=== PATIENT | female | born 1955 | race Caucasian/White ===

== ENCOUNTER 2018-02-16 17:59 | Emergency (ER) | payer MEDICARE ==
[2018-02-16] MEDS ORDERED: LISINOPRIL 10 MG TABLET PO ONE (20:11)
[2018-02-16] MEDS ORDERED: GABAPENTIN 300 MG CAPSULE PO ONE (20:12)
[2018-02-16] MEDS ORDERED: ACYCLOVIR 800 MG TABLET PO ONE (20:12)
[2018-02-16] MEDS ORDERED: PREDNISONE 20 MG TABLET PO ONE (20:12)
--- NOTE | 2018-02-16 20:18 | ER Document Report ---
ED General - General Chief Complaint: Chest Pain Stated Complaint: CHEST PAIN Time Seen by Provider: 02/16/18 19:07 Notes: Patient is a 62-year-old female with a past medical history of hypertension, hyperlipidemia, diabetes, who presents with 5 weeks of burning, stabbing, searing pain to her left upper back and chest wall. She reports that the symptoms are generally constant but have intermittent periods of worsening. She states that nothing seems to improve or worsen that pain. She has noted rash associated with this pain over the affected area he is concerned that she may have shingles. She does not have access to a primary care physician and does not take any of her medications due to lack of ability to purchase them. She denies any known cardiac history, no prior history of heart attacks. She denies that her chest pain is exertional, pressure-like in sensation, or that there is any associated radiation of the pain, shortness of breath nausea, vomiting or diaphoresis. Nothing is new or different about her symptoms today relative to the past several weeks she states that she came to the emergency department primarily because her pain was not getting better and she felt she needed to be evaluated for the possibility of shingles. TRAVEL OUTSIDE OF THE [place] IN LAST 30 DAYS: No - Related Data Allergies/Adverse Reactions: hydrochlorothiazide [Hydrochlorothiazide] Allergy (Verified 06/26/13 11:37) Anaphylaxis morphine [Morphine] Allergy (Verified 02/22/15 19:48) Penicillins Allergy (Verified 06/26/13 11:37) Anaphylaxis Shellfish * [Shellfish] Allergy (Verified 06/26/13 11:37) Sulfa (Sulfonamide Antibiotics) Allergy (Verified 06/26/13 11:37) Anaphylaxis Sea Food Allergy (Uncoded 06/26/13 11:37) Anaphylaxis Past Medical History - General Information source: Patient - Social History Smoking Status: Former Smoker Frequency of alcohol use: None Drug Abuse: Marijuana Lives with: Spouse/Significant other Family History: Reviewed & Not Pertinent Patient has suicidal ideation: No Patient has homicidal ideation: No - Past Medical History Cardiac Medical History: Reports: Hx Coronary Artery Disease - High cholesterol , tricor, Hx Hypertension Denies: Hx Heart Attack Pulmonary Medical History: Reports: Hx Asthma, Hx Bronchitis, Hx COPD, Hx Pneumonia Neurological Medical History: Reports: Hx Seizures. Denies: Hx Cerebrovascular Accident Endocrine Medical History: Reports: Hx Diabetes Mellitus Type 2 Renal/ Medical History: Denies: Hx Peritoneal Dialysis GI Medical History: Reports: Hx Gastroesophageal Reflux Disease Musculoskeltal Medical History: Reports Hx Arthritis Psychiatric Medical History: Reports: Hx Depression Past Surgical History: Reports: Hx Appendectomy, Hx Hysterectomy, Hx Orthopedic Surgery, Hx Tonsillectomy. Denies: Hx Pacemaker - Immunizations Hx Diphtheria, Pertussis, Tetanus Vaccination: Yes Review of Systems - Review of Systems Notes: Constitutional: Negative for fever. HENT: Negative for sore throat. Eyes: Negative for visual changes. Cardiovascular: Positive for chest pain. Respiratory: Negative for shortness of breath. Gastrointestinal: Negative for abdominal pain, vomiting or diarrhea. Genitourinary: Negative for dysuria. Musculoskeletal: Negative for back pain. Skin: Positive or rash. Neurological: Negative for headaches, weakness or numbness. 10 point ROS negative except as marked above and in HPI. Physical Exam - Vital signs Vitals: Temp Pulse Resp BP Pulse Ox 98.2 F 70 18 190/81 H 97 02/16/18 18:16 02/16/18 18:16 02/16/18 18:16 02/16/18 18:16 02/16/18 18:16 Interpretation: Hypertensive Notes: PHYSICAL EXAMINATION: GENERAL: Well-appearing, well-nourished and in no acute distress. HEAD: Atraumatic, normocephalic. EYES: Pupils equal round and reactive to light, extraocular movements intact, sclera anicteric, conjunctiva are normal. ENT: nares patent, oropharynx clear without exudates. Moist mucous membranes. NECK: Normal range of motion, supple without lymphadenopathy LUNGS: Breath sounds clear to auscultation bilaterally and equal. No wheezes rales or rhonchi. HEART: Regular rate and rhythm without murmurs ABDOMEN: Soft, nontender, normoactive bowel sounds. No guarding, no rebound. No masses appreciated. EXTREMITIES: Normal range of motion, no pitting or edema. No cyanosis. NEUROLOGICAL: No focal neurological deficits. Moves all extremities spontaneously and on command. PSYCH: Normal mood, normal affect. SKIN: Warm, Dry, normal turgor, herpetic lesions over the left upper back most are scabbed over with several new vesicular lesions are present Course - Re-evaluation Re-evalutation: 02/16/18 20:15 Patient presents with a rash along the left upper back consistent with shingles. Fortunately the patient reports that she has had this rash and pain associated with the area for almost 5 weeks and the pain is gotten worse over the time worrisome for possible development of postherpetic neuralgia. However she still continues to develop new lesions and she will therefore be started on acyclovir and prednisone. There is no evidence of associated cellulitis with these lesions. Patient is also reporting some chest pain that has been intermittent over the past 1 month in association with the rash that she states has gone over her chest wall as well. I suspect that this likewise is postherpetic neuralgia as a precaution will obtain a chest x-ray and troponin. EKG without ischemic changes and her clinical history is likewise not consistent with ACS, pulmonary embolus, or acute pneumothorax as the etiology of her presentation. Patient's blood pressure is also noted to be markedly elevated here in the emergency department. She reports that this is a chronic issue and she is not currently taking any of her medications due to inability to afford them. She will be restarted on lisinopril and I have emphasized with her that this is a very cheap medication that she should be able to receive for $4 at [facility]. I have provided her 3 refills for this medication and informed her about the [facility] who can continue to see her at a very low cost. - Vital Signs Vital signs: Temp Pulse Resp BP Pulse Ox 98.2 F 70 15 175/95 H 98 02/16/18 18:16 02/16/18 18:16 02/16/18 19:01 02/16/18 19:01 02/16/18 19:01 - Laboratory Result Diagrams: 02/16/18 18:36 Laboratory results interpreted by me: 02/16/18 18:36 Glucose 285 H - Diagnostic Test Radiology reviewed: Image reviewed, Reports reviewed Radiology results interpreted by me: 02/16/18 21:03 Chest x-ray: No acute infiltrate or pneumothorax - EKG Interpretation by Me Additional EKG results interpreted by me: 02/16/18 20:18 Sinus rhythm. Rate 66. No ST elevations or depressions. QTC is 449. T-wave inversion in V3 and 4 no old for comparison. Discharge - Discharge Clinical Impression: Essential hypertension Chest pain Qualifiers: Chest pain type: unspecified Qualified Code(s): R07.9 - Chest pain, unspecified Shingles Qualifiers: Herpes zoster complications: without complications Qualified Code(s): B02.9 - Zoster without complications Condition: Stable Disposition: HOME, SELF-CARE Additional Instructions: Your rash and pain is consistent with a diagnosis of shingles. This is a reactivation of the chickenpox virus you had as a child. You are being started on medicines to combat the virus as well as steroids. Please take exactly as directed until the medications are completed. Return to the emergency department immediately if you develop severe headache, weakness, numbness, worsening of the rash, fever, persistent vomiting, or any other symptoms that are worrisome to you. You were seen today for blood pressure that was high. This is a long-term risk factor for multiple medical problems including heart attack and stroke. However, the blood pressure in of itself will not cause you to have an acute stroke or heart attack over the course of just several days or weeks. You need to have a gradual reduction of your blood pressure back to normal levels over the next several months in conjunction with your primary care physician. Return if you develop headache, weakness, numbness, chest pain, pass out, or have any other symptoms that are concerning to you. You were seen today for chest pain. The exact cause of your pain is unclear. However, based on your cardiac enzyme testing, chest x-ray, and EKG it does not appear that it is from an immediately life-threatening cause at this time. Although your testing here is normal is critical that you follow-up with your primary care physician for continued evaluation of this chest pain and possible stress testing. I recommended you see your physician within the next 24-48 hours to be evaluated for consideration of a stress test. Please return to emergency department immediately if you have worsening of your chest pain, shortness of breath, vomiting, become unable to exert yourself due to pain or difficulty breathing, you pass out, or have any pain that radiates into your arms, jaw, or back. Please also return if you have any additional symptoms that are concerning to you. Prescriptions: Acyclovir 800 mg PO 5XD #35 tablet Gabapentin 300 mg PO TID #90 capsule Lisinopril 20 mg PO DAILY #30 tablet Prednisone [Deltasone 20 mg Tablet] 3 tab PO DAILY 5 Days tablet
[2018-02-16 20:27] LABS: ANION GAP 9 (5-19); BLOOD UREA NITROGEN 9 mg/dL (7-20); CARBON DIOXIDE 25 mmol/L (22-30); CHLORIDE 106 mmol/L (98-107); GLUCOSE 285 mg/dL (75-110); POTASSIUM 4.2 mmol/L (3.6-5.0)
[2018-02-16] MEDS ORDERED: ACYCLOVIR 800 MG TABLET ONE (20:52)
--- NOTE | 2018-02-16 20:54 | RADIOLOGY REPORT (SQ) ---
EXAM DESCRIPTION: CHEST SINGLE VIEW COMPLETED DATE/TIME: 02/16/2018 8:42 pm REASON FOR STUDY: chest pain COMPARISON: 02/22/2015 EXAM PARAMETERS: NUMBER OF VIEWS: One view. TECHNIQUE: Single frontal radiographic view of the chest acquired. RADIATION DOSE: NA LIMITATIONS: None. FINDINGS: LUNGS AND PLEURA: No opacities, masses or pneumothorax. No pleural effusion. MEDIASTINUM AND HILAR STRUCTURES: No masses. Contour normal. HEART AND VASCULAR STRUCTURES: Heart normal in size. Normal vasculature. BONES: No acute findings. HARDWARE: None in the chest. OTHER: No other significant finding. IMPRESSION: NO ACUTE RADIOGRAPHIC FINDING IN THE CHEST. TECHNICAL DOCUMENTATION: JOB ID: [id number] [employer]- All Rights Reserved Reading location - IP/workstation name: [email or web address]
[2018-02-16 21:33] VITALS: BP 171/82
--- NOTE | 2018-02-16 22:02 | EKG REPORT ---
SEVERITY:- ABNORMAL ECG - SINUS RHYTHM NONSPECIFIC REPOL ABNORMALITY, DIFFUSE LEADS : Confirmed by: Shahbaz Eckert MD 16-Feb-2018 22:02:16
== END 2018-02-16 21:33 | disposition home or self-care (01) ==
LOC: ER 17:59
DX: B02.9 Zoster without complications (principal); I10 Essential (primary) hypertension; T46.4X6A Underdosing of angiotensin-converting-enzyme inhibitors, initial encounter; Z91.120 Patient's intentional underdosing of medication regimen due to financial hardship; Z91.14 Patient's other noncompliance with medication regimen; R07.89 Other chest pain; M54.89 Other dorsalgia; E11.9 Type 2 diabetes mellitus without complications; F12.10 Cannabis abuse, uncomplicated; I25.10 Atherosclerotic heart disease of native coronary artery without angina pectoris; J44.9 Chronic obstructive pulmonary disease, unspecified; Z87.892 Personal history of anaphylaxis; Z88.8 Allergy status to other drugs, medicaments and biological substances; Z88.0 Allergy status to penicillin; Z88.2 Allergy status to sulfonamides; Z91.013 Allergy to seafood; Z87.891 Personal history of nicotine dependence; Z87.01 Personal history of pneumonia (recurrent)
CPT/HCPCS: 93005; 99285; 36415; 80048; 84484; 71045; 93010; A9270 ×4; J3490; J7512

== ENCOUNTER 2018-06-04 22:49 | Emergency (ER) | payer MEDICARE ==
[2018-06-04] MEDS ORDERED: HYDROMORPHONE HCL INJ/PF 2 MG/ML AMPULE IV ONE (23:41)
[2018-06-04] MEDS ORDERED: AMLODIPINE BESYLATE 10 MG TABLET PO ONE (23:42)
[2018-06-04] MEDS ORDERED: LISINOPRIL 10 MG TABLET PO ONE (23:42)
--- NOTE | 2018-06-04 23:45 | ER Document Report ---
ED General - General Chief Complaint: Abdominal Pain Stated Complaint: VOMITING/ABDOMINAL PAIN Time Seen by Provider: 06/04/18 23:31 Notes: Patient is a 62-year-old female presents medical complaints. Patient does have a long history of hypertension. She admits that she has not had her blood pressure medications are seen her doctor for a while now. She says actually 2 days ago she noticed that she is having some numbness and tingling into the right side of her body. No weakness on the right side. She is also noticed that she over the course of the last month she has been nauseous and not wanting to eat a whole lot and she has been having some right upper quadrant abdominal pain. She is also noticed that she has pain in her back that radiates around her flanks. She says she does have history of postherpetic neuralgia thinks it could be related to this. She is currently not on any pain medication. She also has noticed that she has had some pressure when she urinates and that her urine has been dark. She has also had a headache now for several days. She denies any recent fevers. He denies any new medications and again has admitted that she has been off her meds for some time now. TRAVEL OUTSIDE OF THE [place] IN LAST 30 DAYS: No - Related Data Allergies/Adverse Reactions: hydrochlorothiazide [Hydrochlorothiazide] Allergy (Verified 06/05/18 01:21) Anaphylaxis morphine [Morphine] Allergy (Verified 06/05/18 01:21) Penicillins Allergy (Verified 06/05/18 01:21) Anaphylaxis Shellfish * [Shellfish] Allergy (Verified 06/05/18 01:21) Sulfa (Sulfonamide Antibiotics) Allergy (Verified 06/05/18 01:21) Anaphylaxis Sea Food Allergy (Uncoded 06/05/18 01:21) Anaphylaxis Past Medical History - Social History Smoking Status: Current Every Day Smoker Frequency of alcohol use: None Drug Abuse: None Family History: Reviewed & Not Pertinent - Past Medical History Cardiac Medical History: Reports: Hx Coronary Artery Disease - High cholesterol , tricor, Hx Hypertension Denies: Hx Heart Attack Pulmonary Medical History: Reports: Hx Asthma, Hx Bronchitis, Hx COPD, Hx Pneumonia Neurological Medical History: Reports: Hx Seizures. Denies: Hx Cerebrovascular Accident Endocrine Medical History: Reports: Hx Diabetes Mellitus Type 2 Renal/ Medical History: Denies: Hx Peritoneal Dialysis GI Medical History: Reports: Hx Gastroesophageal Reflux Disease Musculoskeletal Medical History: Reports Hx Arthritis Psychiatric Medical History: Reports: Hx Depression Past Surgical History: Reports: Hx Appendectomy, Hx Hysterectomy, Hx Orthopedic Surgery, Hx Tonsillectomy. Denies: Hx Pacemaker - Immunizations Hx Diphtheria, Pertussis, Tetanus Vaccination: Yes Review of Systems - Review of Systems Notes: My Normal Review Basic REVIEW OF SYSTEMS: CONSTITUTIONAL : Denies fever, chills, or sweats. Is felt weak. EENT: Denies eye, ear, throat, or mouth pain or symptoms. Denies nasal or sinus congestion. CARDIOVASCULAR: Some chest pressure. Back: Pain around rib cage bilaterally. RESPIRATORY: Denies cough, cold, or chest congestion. Denies shortness of breath, difficulty breathing, or wheezing. GASTROINTESTINAL: Right upper quadrant abdominal pain. Some nausea GENITOURINARY: Denies difficulty urinating, painful urination, burning, frequency, or blood in urine. MUSCULOSKELETAL: Denies neck or back pain or joint pain or swelling. SKIN: Denies rash or skin lesions. NEUROLOGICAL: Denies altered mental status or loss of consciousness. Has a headache. Denies weakness or paralysis or loss of use of either side. Denies problems with gait or speech. Numbness and tingling on right side. ALL OTHER SYSTEMS REVIEWED AND NEGATIVE. Physical Exam - Vital signs Vitals: Temp Pulse Resp BP Pulse Ox 97.9 F 69 18 208/86 H 98 06/04/18 23:14 06/04/18 23:14 06/04/18 23:14 06/04/18 23:14 06/04/18 23:14 - Notes Notes: General Appearance: Well nourished, alert, cooperative, no acute distress, no obvious discomfort. Vitals: reviewed, See vital signs table. Head: no swelling or tenderness to the head Eyes: PERRL, EOMI, Conjuctiva clear Mouth: No decreasd moisture Throat: No tonsillar inflammation, No airway obstruction, No lymphadenopathy Neck: Supple, no neck tenderness, No thyromegaly Back: Patient does have a small pimple-like lesions over her thoracic paraspinal musculature which she says has been there for some time and was told the past that they were possibly shingles. They are bilateral. There is no surrounding erythema or redness. No swelling. Lungs: No wheezing, No rales, No rhonci, No accessory muscle use, good air exchange bilaterally. Heart: Normal rate, Regular rythm, No murmur, no rub Abdomen: Normal BS, soft, No rigidity, mild right upper quadrant abdominal tenderness to palpation, No guarding, no rebound, no abdominal masses, no organomegaly Extremities: strength 5/5 in all extremities, good pulses in all extremities, no swelling or tenderness in the extremities, no edema. Skin: warm, dry, appropriate color, no rash Neuro: speech clear, oriented x 3, normal affect, responds appropriately to questions. Cranial nerves II through XII are intact. Distal sensation intact. Patient moves all extremities without difficulty. Does not have any focal neurologic deficits on exam. Course - Re-evaluation Re-evalutation: 06/05/18 05:49 After treatment of her hypertension patient's symptoms are much improved. She was complaining of some upper quadrant abdominal pain for a while now that has been affecting her eating and drinking. CT scan of the abdomen does not show any evidence of gallbladder pathology and her labs do not suggest that her gallbladder is infected or inflamed. Her headache is improved and her CT scan is negative. She does have a lot of pain that radiates around her flanks that she says she has had ever since she had shingles. I will place her on gabapentin to see if this helps. Overall she is feeling much improved after treatment of her blood pressure. I will place her back on blood pressure medications and talked her the importance of actually taking her blood pressure medications and follow-up with her doctor so that these can be continued to be scribed. I informed her that I want her to have a low threshold to return to ER if she has worsening abdominal pain, difficulty breathing, recurretnweakness or numbness in extremities, chest pain, or if she feels unwell. Patient agrees with plan will be discharged home. Dictation of this chart was performed using voice recognition software; therefore, there may be some unintended grammatical errors. 06/05/18 05:50 - Vital Signs Vital signs: Temp Pulse Resp BP Pulse Ox 97.5 F 81 16 153/74 H 99 06/05/18 03:04 06/05/18 03:04 06/05/18 03:04 06/05/18 03:04 06/05/18 03:04 - Laboratory Result Diagrams: 06/05/18 00:00 06/05/18 00:00 Laboratory results interpreted by me: 06/05/18 06/05/18 06/05/18 00:00 00:00 00:18 WBC 11.0 H Chloride 113 H Carbon Dioxide 16 L Glucose 170 H Urine Protein 30 H Urine Blood MODERATE H Urine Urobilinogen 2.0 H Ur Leukocyte Esterase MODERATE H Discharge - Discharge Clinical Impression: HTN (hypertension) Qualifiers: Hypertension type: unspecified Qualified Code(s): I10 - Essential (primary) hypertension Headache Qualifiers: Headache type: unspecified Headache chronicity pattern: episodic headache Intractability: not intractable Qualified Code(s): R51 - Headache Abdominal pain Qualifiers: Abdominal location: upper abdomen, unspecified Qualified Code(s): R10.10 - Upper abdominal pain, unspecified Condition: Good Disposition: HOME, SELF-CARE Instructions: Family Physicians / Practices Additional Instructions: Please start seeing your doctor again to continue your high blood pressure medications and for reevaluation. I have included a list of local primary care doctors in case you want to establish yourself with a new primary care physican. I have also included a referral to Dr. Chowdhury, GI physician, for reevaluation of your abdomen and further workup for your abdominal pain. Please take the high blood reassure medications as prescribed.Please return to the ER immediately if you develop worsening pain, intractable vomiting, recurrent chest pain, difficulty breathing or feel unwell. I have prescribed Gabapentin to help with your post shingles pain. This medication may make you a little sleepy. it can be titrated up in dose by your doctor every few weeks until it has appropriate effect. Do not titrate this medication yourself. Do not stop it abruptly. Prescriptions: Amlodipine Besylate 10 mg PO DAILY #30 tab Gabapentin 300 mg PO BID #28 capsule Lisinopril 20 mg PO DAILY #30 tablet Forms: Return to Work Referrals: HERVE CHOWDHURY MD [ACTIVE STAFF] - Follow up in 3-5 days
[2018-06-05 00:18] LABS: ABSOLUTE BASOPHILS # (AUTO) 0.1 10^3/uL (0.0-0.2); ABSOLUTE LYMPHOCYTES (AUTO) 3.2 10^3/uL (0.5-4.7); ABSOLUTE MONOCYTES (AUTO) 0.6 10^3/uL (0.1-1.4); ABSOLUTE NEUT (AUTO) 7.1 10^3/uL (1.7-8.2); HEMATOCRIT 42.4 % (36.0-47.0); HEMOGLOBIN 15.2 g/dL (12.0-15.5); MEAN CORPUSCULAR HEMOGLOBIN 32.4 pg (27.0-33.4); MEAN CORPUSCULAR HGB CONC 35.9 g/dL (32.0-36.0); MEAN CORPUSCULAR VOLUME 90 fl (80-97); MONOCYTES % (AUTO) 5.2 % (3-13); PLATELET COUNT 305 10^3/uL (150-450); RED CELL DISTRIBUTION WIDTH 13.1 % (11.5-14.0); SEGMENTED NEUTROPHILS % (AUTO) 64.8 % (42-78); TOTAL CELLS COUNTED % (AUTO) 100 %
[2018-06-05] MEDS ORDERED: METOCLOPRAMIDE HCL INJ/PF 10 MG/2 ML SDV IV ONE (00:23)
[2018-06-05 00:29] LABS: ALANINE AMINOTRANSFERASE 21 U/L (9-52); ALBUMIN 4.5 g/dL (3.5-5.0); ALKALINE PHOSPHATASE 108 U/L (38-126); ANION GAP 14 (5-19); ASPARTATE AMINO TRANSFERASE 14 U/L (14-36); BILIRUBIN,DIRECT 0.3 mg/dL (0.0-0.4); BILIRUBIN,TOTAL 0.6 mg/dL (0.2-1.3); BLOOD UREA NITROGEN 8 mg/dL (7-20); CALCIUM 9.3 mg/dL (8.4-10.2); CARBON DIOXIDE 16 mmol/L (22-30); CHLORIDE 113 mmol/L (98-107); GLUCOSE 170 mg/dL (75-110); LIPASE 139.8 U/L (23-300); POTASSIUM 3.8 mmol/L (3.6-5.0); SODIUM 142.9 mmol/L (137-145); TOTAL PROTEIN 7.1 g/dL (6.3-8.2)
[2018-06-05 00:42] LABS: APPEARANCE,URINE SLIGHTLY-CLOUDY; BILIRUBIN,URINE NEGATIVE (NEGATIVE); COLOR,URINE YELLOW; GLUCOSE, URINE NEGATIVE (NEGATIVE); KETONES,URINE NEGATIVE (NEGATIVE); LEUKOCYTE ESTERASE,URINE MODERATE (NEGATIVE); NITRITE,URINE NEGATIVE (NEGATIVE); PROTEIN,URINE 30 mg/dL (NEGATIVE); URINE SPECIFIC GRAVITY 1.023
--- NOTE | 2018-06-05 01:04 | RADIOLOGY REPORT (SQ) ---
EXAM DESCRIPTION: CT HEAD WITHOUT IV CONTRAST COMPLETED DATE/TME: 06/05/2018 00:00 CLINICAL HISTORY: 62 years, Female, right sided numbness. HX HTN COMPARISON: 03/31/2013 TECHNIQUE: Axial CT images of the brain were obtained without contrast. Sagittal and coronal reformats were performed. DL 1028 Images stored on PACS. All CT scanners at this facility use dose modulation, iterative reconstruction, and/or weight based dosing when appropriate to reduce radiation dose to as low as reasonably achievable (ALARA). [facility]: Dose Right [facility]: CareDose [facility]: Dose Right [facility]: Teradose 4D [facility]: Smart Meeps LIMITATIONS: None. FINDINGS: There is no acute infarct, hemorrhage, mass, edema, hydrocephalus, or extra-axial fluid collection. The paranasal sinuses and mastoid air cells are clear. There is no acute fracture IMPRESSION: No acute intracranial abnormality TECHNICAL DOCUMENTATION: Quality ID # 436: Final reports with documentation of one or more dose reduction techniques (e.g., Automated exposure control, adjustment of the mA and/or kV according to patient size, use of iterative reconstruction technique) 2010 [employer]- All Rights Reserved
[2018-06-05] MEDS ORDERED: NORMAL SALINE 1000 ML 1,000 ML IV ONE (01:05)
[2018-06-05] MEDS ORDERED: HYDROMORPHONE HCL INJ/PF 2 MG/ML AMPULE IV ONE (01:46)
--- NOTE | 2018-06-05 02:12 | RADIOLOGY REPORT (SQ) ---
EXAM DESCRIPTION: CT ABDOMEN PELVIS WITH IV CONTRAST COMPLETED DATE/TME: 06/05/2018 01:14 CLINICAL HISTORY: 62 years, Female, RUQ abdominal pain BUN 8 CREA 0.65 COMPARISON: None. TECHNIQUE: Axial CT images were obtained from the lung bases down to the pubic symphysis after the administration of IV contrast. Sagittal and coronal reformats were performed. DLP six one Images stored on PACS. All CT scanners at this facility use dose modulation, iterative reconstruction, and/or weight based dosing when appropriate to reduce radiation dose to as low as reasonably achievable (ALARA). [facility]: Dose Right [facility]: CareDose [facility]: Dose Right [facility]: Teradose 4D [facility]: Smart Technologies LIMITATIONS: None. FINDINGS: The lung bases are clear. The liver is mildly hypodense. The gallbladder, pancreas, spleen, and adrenal glands are unremarkable. Both kidneys contain nonobstructing calcifications. There is no evidence of hydronephrosis or hydroureter bilaterally. Bilateral renal cysts are noted. There is no intraperitoneal free air or fluid. There is no lymphadenopathy. There are mild atherosclerotic ossifications of the abdominal aorta without evidence of aneurysm. The stomach and small bowel are unremarkable. The appendix is not uniquely identified, however there are no inflammatory changes within the right lower quadrant. Diverticulosis is noted without evidence of diverticulitis. The urinary bladder is unremarkable. There are changes of a hysterectomy. There are no lytic or blastic bone lesions IMPRESSION: No acute findings. Fatty liver. Bilateral nonobstructing nephrolithiasis. TECHNICAL DOCUMENTATION: Quality ID # 436: Final reports with documentation of one or more dose reduction techniques (e.g., Automated exposure control, adjustment of the mA and/or kV according to patient size, use of iterative reconstruction technique) 2010 [employer]- All Rights Reserved
[2018-06-05 03:17] VITALS: BP 153/74
== END 2018-06-05 03:10 | disposition home or self-care (01) ==
LOC: ER 22:49
DX: R10.10 Upper abdominal pain, unspecified (principal); R51 Headache; I10 Essential (primary) hypertension; R20.0 Anesthesia of skin; F17.200 Nicotine dependence, unspecified, uncomplicated; J44.9 Chronic obstructive pulmonary disease, unspecified; E11.9 Type 2 diabetes mellitus without complications; Z88.6 Allergy status to analgesic agent; Z88.2 Allergy status to sulfonamides; Z88.0 Allergy status to penicillin; Z91.013 Allergy to seafood; Z90.710 Acquired absence of both cervix and uterus
CPT/HCPCS: 96376; 99284; 96361; 96374; 96375; 36415; 87086; 83690; 85025; 80053; 81001; 84484; 70450; 74177; J2765; J1170 ×2; J7030; A9270 ×2

== ENCOUNTER 2018-06-14 22:00 | Emergency (ER) | payer MEDICARE ==
[2018-06-14 23:39] LABS: ABSOLUTE BASOPHILS # (AUTO) 0.1 10^3/uL (0.0-0.2); ABSOLUTE LYMPHOCYTES (AUTO) 3.5 10^3/uL (0.5-4.7); ABSOLUTE MONOCYTES (AUTO) 0.6 10^3/uL (0.1-1.4); ABSOLUTE NEUT (AUTO) 6.2 10^3/uL (1.7-8.2); BASOPHILS % (AUTO) 0.5 % (0-2); EOSINOPHILS % (AUTO) 0.1 % (0-6); HEMATOCRIT 40.6 % (36.0-47.0); HEMOGLOBIN 14.5 g/dL (12.0-15.5); MEAN CORPUSCULAR HEMOGLOBIN 32.3 pg (27.0-33.4); MEAN CORPUSCULAR HGB CONC 35.7 g/dL (32.0-36.0); MEAN CORPUSCULAR VOLUME 90 fl (80-97); MONOCYTES % (AUTO) 5.7 % (3-13); PLATELET COUNT 313 10^3/uL (150-450); RED BLOOD COUNT 4.49 10^6/uL (3.72-5.28); RED CELL DISTRIBUTION WIDTH 13.1 % (11.5-14.0); SEGMENTED NEUTROPHILS % (AUTO) 59.7 % (42-78); TOTAL CELLS COUNTED % (AUTO) 100 %; WHITE BLOOD COUNT 10.3 10^3/uL (4.0-10.5)
[2018-06-15 00:02] LABS: APPEARANCE,URINE CLOUDY; BILIRUBIN,URINE NEGATIVE (NEGATIVE); COLOR,URINE YELLOW; GLUCOSE, URINE NEGATIVE (NEGATIVE); KETONES,URINE NEGATIVE (NEGATIVE); LEUKOCYTE ESTERASE,URINE LARGE (NEGATIVE); NITRITE,URINE NEGATIVE (NEGATIVE); PROTEIN,URINE 100 mg/dL (NEGATIVE); URINE SPECIFIC GRAVITY 1.023
[2018-06-15] MEDS ORDERED: ONDANSETRON HCL INJ/PF 4 MG/2 ML SDV IV ONE (00:17)
[2018-06-15] MEDS ORDERED: HYDROMORPHONE HCL INJ/PF 2 MG/ML AMPULE IV ONE (00:17)
--- NOTE | 2018-06-15 00:20 | ER Document Report ---
ED General - General Chief Complaint: Flank Pain Stated Complaint: FLANK PAIN Time Seen by Provider: 06/15/18 00:16 Mode of Arrival: Ambulatory Information source: Patient, Relative Notes: 62-year-old female with coronary artery disease, hypertension, COPD, type 2 diabetes, presents with complaint of right flank pain that started 2 weeks prior to arrival with worsening of pain over the last 3 days. Patient describes the pain as located in her right flank with radiation to her right mid abdomen. Patient describes the pain as constant, stabbing with intermittent worsening of pain. Patient has had associated nausea without vomiting. She does state that her urine has appeared darker. She does have a history of kidney stones with her last occurrence approximately 2 years ago. Patient has had a recent diagnosis of shingles around this area. She is currently taking gabapentin for this recurrent pain. She was also seen 10 days ago in the emergency department where she was found to have markedly elevated blood pressure. TRAVEL OUTSIDE OF THE [place] IN LAST 30 DAYS: No - Related Data Allergies/Adverse Reactions: hydrochlorothiazide [Hydrochlorothiazide] Allergy (Verified 06/05/18 01:21) Anaphylaxis morphine [Morphine] Allergy (Verified 06/05/18 01:21) Penicillins Allergy (Verified 06/05/18 01:21) Anaphylaxis Shellfish * [Shellfish] Allergy (Verified 06/05/18 01:21) Sulfa (Sulfonamide Antibiotics) Allergy (Verified 06/05/18 01:21) Anaphylaxis Sea Food Allergy (Uncoded 06/05/18 01:21) Anaphylaxis Past Medical History - General Information source: Patient, Relative, [facility] Records - Social History Smoking Status: Current Every Day Smoker Cigarette use (# per day): Yes - 5 Smoking Education Provided: Yes Frequency of alcohol use: None Drug Abuse: Marijuana Lives with: Family Family History: Reviewed & Not Pertinent Patient has suicidal ideation: No Patient has homicidal ideation: No - Past Medical History Cardiac Medical History: Reports: Hx Coronary Artery Disease - High cholesterol , tricor, Hx Hypertension Denies: Hx Heart Attack Pulmonary Medical History: Reports: Hx Asthma, Hx Bronchitis, Hx COPD, Hx Pneumonia Neurological Medical History: Reports: Hx Seizures. Denies: Hx Cerebrovascular Accident Endocrine Medical History: Reports: Hx Diabetes Mellitus Type 2 Renal/ Medical History: Denies: Hx Peritoneal Dialysis GI Medical History: Reports: Hx Gastroesophageal Reflux Disease Musculoskeletal Medical History: Reports Hx Arthritis Psychiatric Medical History: Reports: Hx Depression Past Surgical History: Reports: Hx Appendectomy, Hx Hysterectomy, Hx Orthopedic Surgery, Hx Tonsillectomy. Denies: Hx Pacemaker - Immunizations Hx Diphtheria, Pertussis, Tetanus Vaccination: Yes Review of Systems - Review of Systems Constitutional: denies: Fever, Weakness EENT: No symptoms reported Cardiovascular: denies: Chest pain, Palpitations Respiratory: denies: Cough, Short of breath Gastrointestinal: Abdominal pain, Nausea Genitourinary: Flank pain, Hematuria. denies: Dysuria Female Genitourinary: No symptoms reported Musculoskeletal: Muscle pain Skin: Rash Hematologic/Lymphatic: No symptoms reported Neurological/Psychological: denies: Lost consciousness, Headaches -: Yes All other systems reviewed and negative Physical Exam - Vital signs Vitals: Temp Pulse Resp BP Pulse Ox 98.4 F 69 18 152/67 H 100 06/14/18 22:15 06/14/18 22:15 06/14/18 22:15 06/14/18 22:15 06/14/18 22:15 Interpretation: Hypertensive - Notes Notes: PHYSICAL EXAMINATION: GENERAL: Well-appearing, well-nourished and in no acute distress. HEAD: Atraumatic, normocephalic. EYES: Pupils equal round and reactive to light, extraocular movements intact, conjunctiva are normal. ENT: Nares patent, oropharynx clear without exudates. Moist mucous membranes. NECK: Normal range of motion, supple without lymphadenopathy LUNGS: Breath sounds clear to auscultation bilaterally and equal. No wheezes rales or rhonchi. HEART: Regular rate and rhythm without murmurs ABDOMEN: Soft, nontender, nondistended abdomen. No guarding, no rebound. No masses appreciated. Female : CVA tenderness Musculoskeletal: Normal range of motion, no pitting or edema. No cyanosis. NEUROLOGICAL: Cranial nerves grossly intact. Normal speech, normal gait. Normal sensory, motor exams PSYCH: Normal mood, normal affect. SKIN: Scabbed rash along the right flank Course - Re-evaluation Re-evalutation: Laboratory 06/14/18 06/14/18 06/14/18 23:08 23:08 23:30 WBC 10.3 RBC 4.49 Hgb 14.5 Hct 40.6 MCV 90 MCH 32.3 MCHC 35.7 RDW 13.1 Plt Count 313 Seg Neutrophils % 59.7 Lymphocytes % 34.0 Monocytes % 5.7 Eosinophils % 0.1 Basophils % 0.5 Absolute Neutrophils 6.2 Absolute Lymphocytes 3.5 Absolute Monocytes 0.6 Absolute Eosinophils 0.0 Absolute Basophils 0.1 Sodium Cancelled Potassium Cancelled Chloride Cancelled Carbon Dioxide Cancelled Anion Gap Cancelled BUN Cancelled Creatinine Cancelled Est GFR ( Amer) Cancelled Est GFR (Non-Af Amer) Cancelled Glucose Cancelled Calcium Cancelled Total Bilirubin Cancelled Direct Bilirubin Cancelled Neonat Total Bilirubin Cancelled Neonat Direct Bilirubin Cancelled Neonat Indirect Bili Cancelled AST Cancelled ALT Cancelled Alkaline Phosphatase Cancelled Total Protein Cancelled Albumin Cancelled Lipase Cancelled Urine Color YELLOW Urine Appearance CLOUDY Urine pH 5.0 Ur Specific Braxton 1.023 Urine Protein 100 H Urine Glucose (UA) NEGATIVE Urine Ketones NEGATIVE Urine Blood LARGE H Urine Nitrite NEGATIVE Urine Bilirubin NEGATIVE Urine Urobilinogen 2.0 H Ur Leukocyte Esterase LARGE H Urine WBC (Auto) 74 Urine RBC (Auto) >182 Urine Bacteria (Auto) TRACE Squamous Epi Cells Auto 13 Urine Mucus (Auto) OCC Urine Ascorbic Acid NEGATIVE 06/15/18 00:03 WBC RBC Hgb Hct MCV MCH MCHC RDW Plt Count Seg Neutrophils % Lymphocytes % Monocytes % Eosinophils % Basophils % Absolute Neutrophils Absolute Lymphocytes Absolute Monocytes Absolute Eosinophils Absolute Basophils Sodium 143.6 Potassium 3.8 Chloride 114 H Carbon Dioxide 17 L Anion Gap 13 BUN 17 Creatinine 0.68 Est GFR ( Amer) > 60 Est GFR (Non-Af Amer) > 60 Glucose 156 H Calcium 9.3 Total Bilirubin 0.6 Direct Bilirubin 0.4 Neonat Total Bilirubin Not Reportable Neonat Direct Bilirubin Not Reportable Neonat Indirect Bili Not Reportable AST 13 L ALT 20 Alkaline Phosphatase 95 Total Protein 6.8 Albumin 4.2 Lipase 197.2 Urine Color Urine Appearance Urine pH Ur Specific Braxton Urine Protein Urine Glucose (UA) Urine Ketones Urine Blood Urine Nitrite Urine Bilirubin Urine Urobilinogen Ur Leukocyte Esterase Urine WBC (Auto) Urine RBC (Auto) Urine Bacteria (Auto) Squamous Epi Cells Auto Urine Mucus (Auto) Urine Ascorbic Acid 06/15/18 21:47 62-year-old female with coronary artery disease, hypertension, COPD, type 2 diabetes, presents with complaint of right flank pain that started 2 weeks prior to arrival with worsening of pain over the last 3 days. Patient describes the pain as located in her right flank with radiation to her right mid abdomen. Patient describes the pain as constant, stabbing with intermittent worsening of pain. Patient has had associated nausea without vomiting. She does state that her urine has appeared darker. Patient was seen by myself upon arrival. Vital signs were reviewed. Patient is afebrile, normotensive and not hypoxic. Patient does not appear toxic or dehydrated. They are in no acute distress. Previous medical records and nursing notes reviewed. Significant findings include and urinalysis consistent with urinary tract infection. Patient did receive IV Cipro during her ED course. She is tolerating fluids. Patient will be discharged home with Cipro. Patient provided the opportunity to ask questions, and express concerns. Discharge instructions discussed. Patient is agreeable with discharge home. Return indications explained and discussed with the patient who displays understanding. Patient encouraged to return to the emergency department immediately with any concerns. 06/15/18 21:47 - Vital Signs Vital signs: Temp Pulse Resp BP Pulse Ox 98.9 F 69 16 161/73 H 100 06/15/18 02:56 06/15/18 02:56 06/15/18 02:56 06/15/18 02:56 06/15/18 02:56 - Laboratory Result Diagrams: 06/14/18 23:08 06/15/18 00:03 Laboratory results interpreted by me: 06/14/18 06/15/18 23:30 00:03 Chloride 114 H Carbon Dioxide 17 L Glucose 156 H AST 13 L Urine Protein 100 H Urine Blood LARGE H Urine Urobilinogen 2.0 H Ur Leukocyte Esterase LARGE H Discharge - Discharge Clinical Impression: UTI (urinary tract infection) Qualifiers: Urinary tract infection type: site unspecified Hematuria presence: with hematuria Qualified Code(s): N39.0 - Urinary tract infection, site not specified Condition: Good Disposition: HOME, SELF-CARE Instructions: Urinary Tract Infection ([facility]) Additional Instructions: Follow up with your physician tomorrow for further care or return to the ED IMMEDIATELY if symptoms worsen or new concerns occur. If you cannot afford to follow up with your primary care physician a list of low cost clinics have been provided at the end of your discharge papers as well. Prescriptions: Ciprofloxacin HCl [Cipro 500 mg Tablet] 500 mg PO BID #20 tablet Promethazine HCl [Phenergan 25 mg Tablet] 25 mg PO Q6H #10 tablet Forms: Elevated Blood Pressure
[2018-06-15 00:26] LABS: ALANINE AMINOTRANSFERASE 20 U/L (9-52); ALBUMIN 4.2 g/dL (3.5-5.0); ALKALINE PHOSPHATASE 95 U/L (38-126); ANION GAP 13 (5-19); ASPARTATE AMINO TRANSFERASE 13 U/L (14-36); BILIRUBIN,DIRECT 0.4 mg/dL (0.0-0.4); BILIRUBIN,TOTAL 0.6 mg/dL (0.2-1.3); BLOOD UREA NITROGEN 17 mg/dL (7-20); CALCIUM 9.3 mg/dL (8.4-10.2); CARBON DIOXIDE 17 mmol/L (22-30); CHLORIDE 114 mmol/L (98-107); GLUCOSE 156 mg/dL (75-110); LIPASE 197.2 U/L (23-300); POTASSIUM 3.8 mmol/L (3.6-5.0); SODIUM 143.6 mmol/L (137-145); TOTAL PROTEIN 6.8 g/dL (6.3-8.2)
[2018-06-15] MEDS ORDERED: ONDANSETRON ODT 4 MG TAB (6 TAB/ER DISP) PO PRN (01:09)
[2018-06-15] MEDS ORDERED: HYDROCODONE/ACETAMINOPHEN 5-325 MG (6 TAB/ER DISP) PO PRN (01:09)
[2018-06-15] MEDS ORDERED: CIPROFLOXACIN 400 MG/D5W RTU 400 MG/200 ML RTUPB IV SCH (02:00)
[2018-06-15 03:07] VITALS: BP 161/73
== END 2018-06-15 03:00 | disposition home or self-care (01) ==
LOC: ER 22:00
DX: N39.0 Urinary tract infection, site not specified (principal); R31.9 Hematuria, unspecified; R11.0 Nausea; R10.9 Unspecified abdominal pain; R21 Rash and other nonspecific skin eruption; F17.210 Nicotine dependence, cigarettes, uncomplicated; I10 Essential (primary) hypertension; I25.10 Atherosclerotic heart disease of native coronary artery without angina pectoris; E11.9 Type 2 diabetes mellitus without complications; J44.9 Chronic obstructive pulmonary disease, unspecified; Z88.5 Allergy status to narcotic agent; Z87.892 Personal history of anaphylaxis; Z88.8 Allergy status to other drugs, medicaments and biological substances; Z88.0 Allergy status to penicillin; Z91.013 Allergy to seafood; Z88.2 Allergy status to sulfonamides
CPT/HCPCS: 99284; 96375; 96365; 36415; 83690; 85025; 80053; 81001; J1170; J2405; J0744; A9270 ×2

== ENCOUNTER 2018-06-18 19:13 | Inpatient (IN) | payer MEDICARE ==
[2018-06-18] MEDS ORDERED: KETOROLAC TROMETHAMINE INJ/PF 30 MG/1 ML SDV IV ONE (19:48)
[2018-06-18] MEDS ORDERED: FENTANYL CITRATE INJ/PF 100 MCG/2 ML AMPUL IV ONE (19:51)
[2018-06-18 19:58] LABS: ABSOLUTE BASOPHILS # (AUTO) 0.1 10^3/uL (0.0-0.2); ABSOLUTE LYMPHOCYTES (AUTO) 2.2 10^3/uL (0.5-4.7); ABSOLUTE MONOCYTES (AUTO) 0.5 10^3/uL (0.1-1.4); ABSOLUTE NEUT (AUTO) 5.5 10^3/uL (1.7-8.2); EOSINOPHILS % (AUTO) 0.1 % (0-6); HEMATOCRIT 32.7 % (36.0-47.0); HEMOGLOBIN 11.5 g/dL (12.0-15.5); LYMPHOCYTES % (AUTO) 26.6 % (13-45); MEAN CORPUSCULAR HEMOGLOBIN 32.3 pg (27.0-33.4); MEAN CORPUSCULAR HGB CONC 35.3 g/dL (32.0-36.0); MEAN CORPUSCULAR VOLUME 91 fl (80-97); MONOCYTES % (AUTO) 6.2 % (3-13); PLATELET COUNT 237 10^3/uL (150-450); RED BLOOD COUNT 3.58 10^6/uL (3.72-5.28); RED CELL DISTRIBUTION WIDTH 13.1 % (11.5-14.0); SEGMENTED NEUTROPHILS % (AUTO) 66.1 % (42-78); TOTAL CELLS COUNTED % (AUTO) 100 %; WHITE BLOOD COUNT 8.3 10^3/uL (4.0-10.5)
[2018-06-18 20:21] LABS: ALANINE AMINOTRANSFERASE 21 U/L (9-52); ALBUMIN 2.6 g/dL (3.5-5.0); ALKALINE PHOSPHATASE 58 U/L (38-126); ANION GAP 9 (5-19); ASPARTATE AMINO TRANSFERASE 8 U/L (14-36); BILIRUBIN,DIRECT 0.2 mg/dL (0.0-0.4); BILIRUBIN,TOTAL 0.2 mg/dL (0.2-1.3); BLOOD UREA NITROGEN 22 mg/dL (7-20); CARBON DIOXIDE 11 mmol/L (22-30); CHLORIDE 124 mmol/L (98-107); CREATINE KINASE 20 U/L (30-135); GLUCOSE 113 mg/dL (75-110); SODIUM 143.8 mmol/L (137-145); TOTAL PROTEIN 4.7 g/dL (6.3-8.2)
--- NOTE | 2018-06-18 20:30 | ER Document Report ---
ED Dizziness/Weakness - General Chief Complaint: General Weakness Stated Complaint: WEAKNESS Time Seen by Provider: 06/18/18 19:27 Notes: 62-year-old female patient emergency department chief complaint weakness and dizziness. Patient states that she has right flank pain as well. Had a previous workup showing UTI. Questionable bilateral nonobstructing nephrolithiasis. States that she was placed on Cipro and has not felt well since that time. States that the pain is still there on the right flank. Cannot keep anything down. Nausea and vomiting. Not getting better. Resting something for the pain. TRAVEL OUTSIDE OF THE [place] IN LAST 30 DAYS: No - HPI Patient complains to provider of: Dizziness, Weakness Onset/Duration: Gradual Quality of pain: Achy Severity: Moderate Pain Level: 3 - Related Data Allergies/Adverse Reactions: hydrochlorothiazide [Hydrochlorothiazide] Allergy (Verified 06/05/18 01:21) Anaphylaxis morphine [Morphine] Allergy (Verified 06/05/18 01:21) Penicillins Allergy (Verified 06/05/18 01:21) Anaphylaxis Shellfish * [Shellfish] Allergy (Verified 06/05/18 01:21) Sulfa (Sulfonamide Antibiotics) Allergy (Verified 06/05/18 01:21) Anaphylaxis Sea Food Allergy (Uncoded 06/05/18 01:21) Anaphylaxis Past Medical History - General Information source: Patient - Social History Smoking Status: Current Every Day Smoker Cigarette use (# per day): Yes Frequency of alcohol use: None Drug Abuse: None Lives with: Spouse/Significant other Family History: Reviewed & Not Pertinent - Past Medical History Cardiac Medical History: Reports: Hx Coronary Artery Disease - High cholesterol , tricor, Hx Hypertension Denies: Hx Heart Attack Pulmonary Medical History: Reports: Hx Asthma, Hx Bronchitis, Hx COPD, Hx Pneumonia Neurological Medical History: Reports: Hx Seizures. Denies: Hx Cerebrovascular Accident Endocrine Medical History: Reports: Hx Diabetes Mellitus Type 2 Renal/ Medical History: Denies: Hx Peritoneal Dialysis GI Medical History: Reports: Hx Gastroesophageal Reflux Disease Musculoskeletal Medical History: Reports Hx Arthritis Psychiatric Medical History: Reports: Hx Depression Past Surgical History: Reports: Hx Appendectomy, Hx Hysterectomy, Hx Orthopedic Surgery, Hx Tonsillectomy. Denies: Hx Pacemaker - Immunizations Hx Diphtheria, Pertussis, Tetanus Vaccination: Yes Review of Systems - Review of Systems Constitutional: Fever, Malaise, Weakness EENT: denies: Eye pain, Double vision, Ear pain, Difficulty swallowing, Throat swelling Cardiovascular: Dizziness, Lightheaded. denies: Chest pain, Palpitations, Heart racing, Orthopnea, Syncope, Edema Respiratory: denies: Cough, Hurts to breathe, Short of breath, Wheezing Gastrointestinal: denies: Abdominal pain, Diarrhea, Nausea, Vomiting Genitourinary: Flank pain. denies: Burning, Dysuria Skin: denies: Dryness, Lesions, Lumps, Rash Hematologic/Lymphatic: denies: Blood clots, Easy bleeding, Easy bruising Neurological/Psychological: Confusion, Weakness. denies: Numbness Physical Exam - Vital signs Vitals: Temp Pulse Resp BP Pulse Ox 98.1 F 59 L 17 96/58 L 100 06/18/18 19:32 06/18/18 19:32 06/18/18 19:32 06/18/18 19:32 06/18/18 19:32 Interpretation: Normal - General General appearance: Appears well, Alert - HEENT Head: Normocephalic, Atraumatic Eyes: Normal Pupils: PERRL - Respiratory Respiratory status: No respiratory distress Chest status: Nontender Breath sounds: Normal Chest palpation: Normal - Cardiovascular Rhythm: Regular Heart sounds: Normal auscultation Murmur: No - Abdominal Inspection: Normal Distension: No distension Bowel sounds: Normal Tenderness: Nontender Organomegaly: No organomegaly - Back Back: Normal, Nontender, CVA tenderness - The right side - Extremities General upper extremity: Normal inspection, Nontender, Normal color, Normal ROM , Normal temperature General lower extremity: Normal inspection, Nontender, Normal color, Normal ROM , Normal temperature, Normal weight bearing. No: Richa's sign - Neurological Neuro grossly intact: Yes Cognition: Normal Orientation: AAOx4 Carmen Coma Scale Eye Opening: Spontaneous Carmen Coma Scale Verbal: Oriented Bono Coma Scale Motor: Obeys Commands Carmen Coma Scale Total: 15 Speech: Normal Motor strength normal: LUE, RUE, LLE, RLE Sensory: Normal - Psychological Associated symptoms: Normal affect, Normal mood - Skin Skin Temperature: Warm Skin Moisture: Dry Skin Color: Normal Course - Re-evaluation Re-evalutation: 06/18/18 20:30 Likely patient could be having a reaction to the medication. Still having flank pain. Will repeat urine, repeat CT scan, hydrate, pain control, reassess. 06/18/18 22:14 Patient has a small 2 mm stone. Mild hydro-. Still has UTI. Culture is added. Multiple electrolyte abnormalities. More likely patient can be managed here. This should not be a stone that does not pass. [place] better initially after Toradol but not requiring more pain medication. Will consult with hospitalist for admission at this time. 06/18/18 23:34 Hospitalist has evaluated patient. Comfortable admitting at this time. - Vital Signs Vital signs: Temp Pulse Resp BP Pulse Ox 98.1 F 71 18 133/53 H 99 06/18/18 23:25 06/18/18 23:25 06/18/18 23:25 06/18/18 23:25 06/18/18 23:25 - Laboratory Result Diagrams: 06/18/18 19:41 06/18/18 19:41 Laboratory results interpreted by me: 06/18/18 06/18/18 06/18/18 19:41 19:41 20:31 RBC 3.58 L Hgb 11.5 L Hct 32.7 L Potassium 2.8 L* Chloride 124 H Carbon Dioxide 11 L BUN 22 H Creatinine 1.27 H Est GFR ( Amer) 51 L Est GFR (Non-Af Amer) 42 L Glucose 113 H Calcium 6.8 L* AST 8 L Creatine Kinase 20 L Total Protein 4.7 L Albumin 2.6 L Urine Protein 100 H Urine Blood LARGE H Ur Leukocyte Esterase LARGE H - EKG Interpretation by Me EKG shows normal: Sinus rhythm, Varnell, Intervals, QRS Complexes, ST-T Waves When compared to previous EKG there are: No significant change Discharge - Discharge Clinical Impression: Ureterolithiasis, Hypocalcemia, Hypokalemia Urinary tract infection Qualifiers: Urinary tract infection type: site unspecified Hematuria presence: without hematuria Qualified Code(s): N39.0 - Urinary tract infection, site not specified Condition: Good Disposition: ADMITTED INPATIENT Admitting Provider: Hospitalist - [facility] Admitted: Telemetry
[2018-06-18 20:39] LABS: CALCIUM 6.8 mg/dL (8.4-10.2); POTASSIUM 2.8 mmol/L (3.6-5.0)
[2018-06-18] MEDS ORDERED: CALCIUM GLUCONATE 1000 MG/10 ML INJ IV ONE (20:48)
[2018-06-18] MEDS ORDERED: POTASSI CL 20 MEQ/50 ML RIDER 20 MEQ/50 ML RTUPB IV ONE (20:49)
[2018-06-18] MEDS ORDERED: POTASSIUM CHLORIDE 20 MEQ/15 ML UDCUP PO ONE (20:49)
[2018-06-18] MEDS ORDERED: HYDROMORPHONE HCL INJ/PF 2 MG/ML AMPULE IV ONE (21:03)
[2018-06-18] MEDS ORDERED: ONDANSETRON HCL INJ/PF 4 MG/2 ML SDV IV ONE (21:03)
[2018-06-18] MEDS ORDERED: ONDANSETRON 4 MG TAB.RAPDIS PO ONE (21:03)
[2018-06-18] MEDS ORDERED: OXYCODONE-ACETAMINOPHEN 5-325 MG TABLET PO ONE (21:08)
[2018-06-18 21:16] LABS: APPEARANCE,URINE CLOUDY; BILIRUBIN,URINE NEGATIVE (NEGATIVE); COLOR,URINE YELLOW; GLUCOSE, URINE NEGATIVE (NEGATIVE); KETONES,URINE NEGATIVE (NEGATIVE); LEUKOCYTE ESTERASE,URINE LARGE (NEGATIVE); NITRITE,URINE NEGATIVE (NEGATIVE); PROTEIN,URINE 100 mg/dL (NEGATIVE); URINE SPECIFIC GRAVITY 1.015; UROBILINOGEN,URINE NEGATIVE mg/dL (<2.0)
--- NOTE | 2018-06-18 21:19 | RADIOLOGY REPORT (SQ) ---
EXAM DESCRIPTION: CT ABD/PELVIS NO ORAL OR IV COMPLETED DATE/TIME: 06/18/2018 8:44 pm REASON FOR STUDY: right flank pain COMPARISON: 06/05/2018 TECHNIQUE: CT scan of the abdomen and pelvis performed without intravenous or oral contrast. Images reviewed with lung, soft tissue, and bone windows. Reconstructed coronal and sagittal MPR images revi ewed. All images stored on PACS. All CT scanners at this facility use dose modulation, iterative reconstruction, and/or weight based d osing when appropriate to reduce radiation dose to as low as reasonably achievable (ALARA). [facility]: Dose Right [facility]: CareDose [facility]: Dose Right [facility]: Teradose 4D [facility]: Inhale Digital RADIATION DOSE: CT Rad equipment meets quality standard of care and radiation dose reduction techniq ues were employed. CTDIvol: 7.0 mGy. DLP: 319 mGy-cm.mGy. LIMITATIONS: None. FINDINGS: LOWER CHEST: No significant findings. No nodules or infiltrates. NON-CONTRASTED LIVER, SPLEEN, ADRENALS: Evaluation limited by lack of IV contrast. No identified sign ificant masses. PANCREAS: No masses. No peripancreatic inflammatory changes. GALLBLADDER: No identified stones by CT criteria. No inflammatory changes to suggest cholecystitis. RIGHT KIDNEY AND URETER: No suspicious masses. Assessment limited by lack of IV contrast. There are a couple small nonobstructing intrarenal calculi. Cannot exclude a couple small mid to distal urete ral calculi. Mild hydronephrosis/ hydroureter. LEFT KIDNEY AND URETER: No suspicious masses. Assessment limited by lack of IV contrast. There are couple small nonobstructing intrarenal calculi. No hydronephrosis or hydroureter. AORTA AND RETROPERITONEUM: No aneurysm. No retroperitoneal masses or adenopathy. BOWEL AND PERITONEAL CAVITY: Mild diverticulosis coli. APPENDIX: Surgically absent. PELVIS, BLADDER, AND ABDOMINAL WALL:No abnormal masses. No free fluid. Bladder normal. BONES: No significant findings. OTHER: No other significant finding. IMPRESSION: Intrarenal calculi bilaterally. Mild right hydronephrosis/ hydroureter that appears to be secondary to a couple of 2 mm calcifications in the mid to distal ureter. COMMENT: Quality ID # [id number]: Final reports with documentation of one or more dose reduction techniques (e.g., Automated exposure control, adjustment of the mA and/or kV according to patient size, use of iterative reconstruction technique) TECHNICAL DOCUMENTATION: JOB ID: [id number] [employer]- All Rights Reserved Reading location - IP/workstation name: [email or web address]
--- NOTE | 2018-06-18 22:09 | EKG REPORT ---
SEVERITY:- BORDERLINE ECG - SINUS RHYTHM BORDERLINE T ABNORMALITIES, DIFFUSE LEADS : Confirmed by: Andressa Pulido 18-Jun-2018 22:09:23
[2018-06-18] MEDS ORDERED: CEFTRIAXONE 1 GM/D5W RTU 1 GM/50 ML RTUPB IV ONE (22:13)
[2018-06-18] MEDS ORDERED: CEFTRIAXONE INJ 1000 MG VIAL ONE (23:11)
[2018-06-18] MEDS ORDERED: POTASSI CL 20 MEQ/NS 1L 1,000 ML IV PRN (23:27)
[2018-06-18] MEDS ORDERED: IPRATROPIUM/ALBUTEROL 0.5-2.5 MG/3 ML AMPUL NEB PRN (23:27)
[2018-06-18] MEDS ORDERED: ACETAMINOPHEN 325 MG TABLET PO PRN (23:27)
[2018-06-18] MEDS ORDERED: OXYCODONE-ACETAMINOPHEN 5-325 MG TABLET ONE (23:38)
[2018-06-18] MEDS: ONDANSETRON HCL INJ/PF 4 MG/2 ML SDV IV PRN (23:46)
[2018-06-18] MEDS: OXYCODONE-ACETAMINOPHEN 5-325 MG TABLET PO PRN (23:57)
[2018-06-19] MEDS ORDERED: FENTANYL CITRATE INJ/PF 100 MCG/2 ML AMPUL IV ONE (00:13)
--- NOTE | 2018-06-19 00:50 | PDOC H&P ---
History of Present Illness Admission Date/PCP: 06/18/18 22:23 None Patient complains of: Weakness, right flank pain, nausea and vomiting History of Present Illness: GANESH GANT is a 62 year old female with history of COPD who is active smoker, hypertension and diabetes who does not take medications presents to the emergency room with multiple complain such as right flank pain along with nausea vomiting and weak and dizzy. Patient was seen in the emergency room twice in the last 10 days for similar complaint. Patient was diagnosed with UTI and nonobstructive kidney stone. Patient was prescribed Cipro. However she did not take medication because it made her nauseous and vomiting. Patient denies fever or chills. Patient denies chest pain or shortness of breath. Patient denies headache or focal weakness or numbness or vaginal discharge. Patient reports dysuria without hematuria. On arrival to emergency room patient was afebrile with initial blood pressure was 96/58. Her laboratory workup shows normal white count. Chemistry shows hypokalemia and hypocalcemia along with slightly elevated creatinine. UA shows UTI. CT abdomen was done which shows mild hydronephrosis and 2 mm distal ureteral stone. Patient was given ceftriaxone and was referred to hospitalist service for admission. Past Medical History Cardiac Medical History: Reports: Coronary Artery Disease - High cholesterol, tricor, Hypertension Denies: Myocardial Infarction Pulmonary Medical History: Reports: Asthma, Bronchitis, Chronic Obstructive Pulmonary Disease (COPD), Pneumonia Neurological Medical History: Reports: Seizures Endocrine Medical History: Reports: Diabetes Mellitus Type 2 GI Medical History: Reports: Gastroesophageal Reflux Disease Musculoskeltal Medical History: Reports: Arthritis Psychiatric Medical History: Reports: Depression Hematology: Denies: Anemia Past Surgical History Past Surgical History: Reports: Appendectomy, Hysterectomy, Orthopedic Surgery, Tonsillectomy Denies: Pacemaker Social History Information Source: Patient Lives with: Spouse/Significant other Smoking Status: Current Every Day Smoker Frequency of Alcohol Use: None Hx Recreational Drug Use: Yes Drugs: Marijuana Hx Prescription Drug Abuse: No Family History Family History: Reviewed & Not Pertinent Parental Family History Reviewed: No Children Family History Reviewed: No Sibling(s) Family History Reviewed.: No Medication/Allergy Home Medications: Albuterol Sulfate [Proair HFA] 8.5 gm IH PRN PRN 10/22/12 Albuterol Sulfate [Ventolin HFA] 1 puff IH Q4HP PRN 10/22/12 Alprazolam [Xanax 0.25 Mg Tablet] 0.25 mg PO PRN PRN 10/22/12 Amlodipine Besylate [Norvasc 5 mg Tablet] 5 mg PO DAILY 10/22/12 Divalproex Sodium [Depakote] 500 mg PO DAILY 10/22/12 Esomeprazole Mag Trihydrate [Nexium] 40 mg PO DAILY 10/22/12 Fluticasone Propionate [Flovent Hfa] 12 gm IH PRN PRN 10/22/12 Ropinirole HCl [Requip 1 Mg Tablet] 1 mg PO DAILY 10/22/12 Divalproex Sodium [Divalproex Sodium ER] 500 mg PO DAILY 02/22/15 Lisinopril 10 mg PO DAILY 02/22/15 Acyclovir 800 mg PO 5XD #35 tablet 02/16/18 Gabapentin 300 mg PO TID #90 capsule 02/16/18 Lisinopril 20 mg PO DAILY #30 tablet 02/16/18 Prednisone [Deltasone 20 mg Tablet] 3 tab PO DAILY 5 Days tablet 02/16/18 Amlodipine Besylate 10 mg PO DAILY #30 tab 06/05/18 Gabapentin 300 mg PO BID #28 capsule 06/05/18 Lisinopril 20 mg PO DAILY #30 tablet 06/05/18 Ciprofloxacin HCl [Cipro 500 mg Tablet] 500 mg PO BID #20 tablet 06/15/18 Promethazine HCl [Phenergan 25 mg Tablet] 25 mg PO Q6H #10 tablet 06/15/18 Allergies/Adverse Reactions: hydrochlorothiazide [Hydrochlorothiazide] Allergy (Verified 06/05/18 01:21) Anaphylaxis morphine [Morphine] Allergy (Verified 06/05/18 01:21) Penicillins Allergy (Verified 06/05/18 01:21) Anaphylaxis Shellfish * [Shellfish] Allergy (Verified 06/05/18 01:21) Sulfa (Sulfonamide Antibiotics) Allergy (Verified 06/05/18 01:21) Anaphylaxis Sea Food Allergy (Uncoded 06/05/18 01:21) Anaphylaxis Review of Systems All systems: reviewed and no additional remarkable complaints except as stated Physical Exam Vital Signs: Temp Pulse Resp BP Pulse Ox 98.1 F 71 18 133/53 H 99 06/18/18 23:25 06/18/18 23:25 06/18/18 23:25 06/18/18 23:25 06/18/18 23:25 General appearance: PRESENT: no acute distress, mild distress, well-developed, well-nourished Head exam: PRESENT: atraumatic, normocephalic Eye exam: ABSENT: conjunctival injection, conjunctiva pink, conjunctiva pale, EOMI, nystagmus, periorbital swelling, PERRLA, scleral icterus, other Ear exam: ABSENT: bleeding, drainage, normal external ear exam, TM's normal bilaterally, other Mouth exam: PRESENT: dry mucosa Teeth exam: ABSENT: dental caries, dental tenderness, edentulous, poor dentation , other Throat exam: ABSENT: post pharyngeal erythema, tonsillar erythema, tonsillar exudate, tonsillogmegaly, other Neck exam: ABSENT: carotid bruit, JVD, thyromegaly Respiratory exam: PRESENT: clear to auscultation mal. ABSENT: crackles, wheezes Cardiovascular exam: PRESENT: RRR, +S1, +S2. ABSENT: gallop, rubs GI/Abdominal exam: PRESENT: normal bowel sounds, soft, tenderness - Right flank CVA tenderness. ABSENT: organolmegaly Rectal exam: PRESENT: deferred Gentrourinary exam: ABSENT: ecchymosis, erythema, lacerations, lesions, scrotal swelling, testicular tenderness, urethral discharge, indwelling catheter, other Extremities exam: ABSENT: calf tenderness, clubbing, full ROM, joint swelling, pedal edema, tenderness, +1 edema, +2 edema, other Musculoskeletal exam: PRESENT: ambulatory Neurological exam: PRESENT: alert, altered, awake, oriented to person, oriented to place, oriented to time, oriented to situation. ABSENT: motor sensory deficit Psychiatric exam: ABSENT: homicidal ideation, suicidal ideation Skin exam: ABSENT: rash Results Laboratory Results: Lab reviewed Impressions: Abdomen/Pelvis CT 06/18/18 19:51 IMPRESSION: Intrarenal calculi bilaterally. Mild right hydronephrosis/ hydroureter that appears to be secondary to a couple of 2 mm calcifications in the mid to distal ureter. Status: Image reviewed by me Assessment & Plan - Diagnosis (1) UTI (urinary tract infection) Qualifiers: Urinary tract infection type: site unspecified Hematuria presence: without hematuria Qualified Code(s): N39.0 - Urinary tract infection, site not specified Is this a current diagnosis for this admission?: Yes Plan: Patient with UTI and nephrolithiasis with mild hydronephrosis. Creatinine is 1.2. Patient does not appear septic. Will admit patient for IV antibiotic and IV fluids. Follow-up urine culture and blood culture. (2) Ureterolithiasis Is this a current diagnosis for this admission?: Yes Plan: Patient has multiple nonobstructing stone has hydronephrosis as well. Continue IV fluids. Will recheck renal function in a.m. (3) Hypocalcemia Is this a current diagnosis for this admission?: Yes Plan: We will replace calcium and recheck level in morning.. (4) Hypokalemia Is this a current diagnosis for this admission?: Yes - Time Time Spent: 30 to 50 Minutes - Inpatient Certification Based on my medical assessment, after consideration of the patient's comorbidities, presenting symptoms, or acuity I expect that the services needed warrant INPATIENT care.: Yes I certify that my determination is in accordance with my understanding of Medicare's requirements for reasonable and necessary INPATIENT services [42 CFR 412.3e].: Yes
[2018-06-19] MEDS ORDERED: KETOROLAC TROMETHAMINE INJ/PF 30 MG/1 ML SDV IV ONE (02:30)
[2018-06-19] MEDS: OXYCODONE-ACETAMINOPHEN 5-325 MG TABLET PO PRN (05:49)
[2018-06-19 06:47] LABS: ANION GAP 15 (5-19); BLOOD UREA NITROGEN 21 mg/dL (7-20); CARBON DIOXIDE 12 mmol/L (22-30); CHLORIDE 121 mmol/L (98-107); GLUCOSE 121 mg/dL (75-110); SODIUM 147.7 mmol/L (137-145)
[2018-06-19 06:54] LABS: POTASSIUM 4.3 mmol/L (3.6-5.0)
[2018-06-19] MEDS: ONDANSETRON HCL INJ/PF 4 MG/2 ML SDV IV PRN ×3 (08:28→21:20)
[2018-06-19] MEDS: ENOXAPARIN SODIUM INJ 30 MG/0.3 ML DISP.SYRIN SUBCUT SCH (09:22)
[2018-06-19] MEDS: HYDROMORPHONE HCL INJ/PF 2 MG/ML AMPULE IV PRN ×4 (09:23→22:43)
[2018-06-19 09:49] LABS: ABSOLUTE BASOPHILS # (AUTO) 0.1 10^3/uL (0.0-0.2); ABSOLUTE LYMPHOCYTES (AUTO) 2.2 10^3/uL (0.5-4.7); ABSOLUTE MONOCYTES (AUTO) 0.5 10^3/uL (0.1-1.4); ABSOLUTE NEUT (AUTO) 8.4 10^3/uL (1.7-8.2); BASOPHILS % (AUTO) 0.7 % (0-2); HEMATOCRIT 39.7 % (36.0-47.0); LYMPHOCYTES % (AUTO) 19.8 % (13-45); MEAN CORPUSCULAR HEMOGLOBIN 31.5 pg (27.0-33.4); MEAN CORPUSCULAR HGB CONC 34.6 g/dL (32.0-36.0); MEAN CORPUSCULAR VOLUME 91 fl (80-97); MONOCYTES % (AUTO) 4.1 % (3-13); PLATELET COUNT 312 10^3/uL (150-450); RED BLOOD COUNT 4.36 10^6/uL (3.72-5.28); RED CELL DISTRIBUTION WIDTH 12.8 % (11.5-14.0); SEGMENTED NEUTROPHILS % (AUTO) 75.4 % (42-78); TOTAL CELLS COUNTED % (AUTO) 100 %; WHITE BLOOD COUNT 11.2 10^3/uL (4.0-10.5)
[2018-06-19 09:55] LABS: HEMOGLOBIN 13.7 g/dL (12.0-15.5)
--- NOTE | 2018-06-19 12:51 | PDOC CONSULTATION ---
Consultation Consult Date: 06/19/18 Consult reason:: right ureter stone History of Present Illness Admission Date/PCP: 06/18/18 22:23 History of Present Illness: GANESH GANT is a 62 year old female Past Medical History Cardiac Medical History: Reports: Coronary Artery Disease - High cholesterol, tricor, Hypertension Denies: Myocardial Infarction Pulmonary Medical History: Reports: Asthma, Bronchitis, Chronic Obstructive Pulmonary Disease (COPD), Pneumonia Neurological Medical History: Reports: Seizures Endocrine Medical History: Reports: Diabetes Mellitus Type 2 GI Medical History: Reports: Gastroesophageal Reflux Disease Musculoskeltal Medical History: Reports: Arthritis Psychiatric Medical History: Reports: Depression Hematology: Denies: Anemia Past Surgical History Past Surgical History: Reports: Appendectomy, Hysterectomy, Orthopedic Surgery, Tonsillectomy Denies: Pacemaker Social History Lives with: Spouse/Significant other Smoking Status: Current Every Day Smoker Frequency of Alcohol Use: None Hx Recreational Drug Use: Yes Drugs: Marijuana Hx Prescription Drug Abuse: No Family History Family History: Reviewed & Not Pertinent Parental Family History Reviewed: No Children Family History Reviewed: No Sibling(s) Family History Reviewed.: No Medication/Allergy Home Medications: Amlodipine Besylate [Norvasc 10 mg Tablet] 10 mg PO DAILY 06/19/18 Ciprofloxacin HCl [Cipro 500 mg Tablet] 500 mg PO Q12 06/19/18 Gabapentin [Neurontin 300 mg Capsule] 300 mg PO Q12 06/19/18 Lisinopril [Prinivil] 20 mg PO DAILY 06/19/18 Promethazine HCl [Phenergan 25 mg Tablet] 25 mg PO Q6HP PRN 06/19/18 Allergies/Adverse Reactions: hydrochlorothiazide [Hydrochlorothiazide] Allergy (Verified 06/05/18 01:21) Anaphylaxis morphine [Morphine] Allergy (Verified 06/05/18 01:21) Penicillins Allergy (Verified 06/05/18 01:21) Anaphylaxis Shellfish * [Shellfish] Allergy (Verified 06/05/18 01:21) Sulfa (Sulfonamide Antibiotics) Allergy (Verified 06/05/18 01:21) Anaphylaxis Sea Food Allergy (Uncoded 06/05/18 01:21) Anaphylaxis Physical Exam Vital Signs: Temp Pulse Resp BP Pulse Ox 98.2 F 81 16 141/68 H 100 06/19/18 08:24 06/19/18 10:21 06/19/18 10:21 06/19/18 08:24 06/19/18 10:21 Intake & Output 06/18/18 06/19/18 06/20/18 06:59 06:59 06:59 Weight 70.6 kg Results Laboratory Results: 06/19/18 09:15 06/19/18 05:59 06/19/18 06/19/18 06/19/18 01:26 05:59 05:59 WBC Cancelled RBC Cancelled Hgb Cancelled Hct Cancelled MCV Cancelled MCH Cancelled MCHC Cancelled RDW Cancelled Plt Count Cancelled Seg Neutrophils % Cancelled Lymphocytes % Cancelled Monocytes % Cancelled Eosinophils % Cancelled Basophils % Cancelled Absolute Neutrophils Cancelled Absolute Lymphocytes Cancelled Absolute Monocytes Cancelled Absolute Eosinophils Cancelled Absolute Basophils Cancelled Sodium 147.7 H Potassium 4.3 D Chloride 121 H Carbon Dioxide 12 L Anion Gap 15 BUN 21 H Creatinine 1.03 Est GFR ( Amer) > 60 Est GFR (Non-Af Amer) 54 L Glucose 121 H Lactic Acid 0.7 Calcium 9.0 06/19/18 06/19/18 08:00 09:15 WBC Cancelled 11.2 H RBC Cancelled 4.36 Hgb Cancelled 13.7 D Hct Cancelled 39.7 MCV Cancelled 91 MCH Cancelled 31.5 MCHC Cancelled 34.6 RDW Cancelled 12.8 Plt Count Cancelled 312 Seg Neutrophils % Cancelled 75.4 Lymphocytes % Cancelled 19.8 Monocytes % Cancelled 4.1 Eosinophils % Cancelled 0.0 Basophils % Cancelled 0.7 Absolute Neutrophils Cancelled 8.4 H Absolute Lymphocytes Cancelled 2.2 Absolute Monocytes Cancelled 0.5 Absolute Eosinophils Cancelled 0.0 Absolute Basophils Cancelled 0.1 Sodium Potassium Chloride Carbon Dioxide Anion Gap BUN Creatinine Est GFR ( Amer) Est GFR (Non-Af Amer) Glucose Lactic Acid Calcium Impressions: Abdomen/Pelvis CT 06/18/18 19:51 IMPRESSION: Intrarenal calculi bilaterally. Mild right hydronephrosis/ hydroureter that appears to be secondary to a couple of 2 mm calcifications in the mid to distal ureter. Assessment & Plan - Plan Summary Plan Summary: checked her CT, small stone in ureter, mild hydro, Cr is normal, WBC wnl, because of pain and vomiting told will take to OR and insert double j on the right side
--- NOTE | 2018-06-19 13:48 | PDOC PROGRESS REPORT ---
Subjective Progress Note for:: 06/19/18 Subjective:: This is 62 years old female patient presented with chief complaint of right flank pain, nausea and vomiting. CT scan is positive for intrarenal calculi bilaterally and mild right hydronephrosis/hydroureter that appears to be secondary to a couple of 2 mm calcifications in the mid to distal ureter. I consulted Dr. coker who scheduled the patient for a right ureteral double-J stent placement. Patient has been on ceftriaxone for complicated UTI. This morning I seen patient resting in bed. She is complaining of right flank pain and she is asking for stronger pain medication than Percocet. Reason For Visit: UTI; HYPOKALEMIA Physical Exam Vital Signs: Temp Pulse Resp BP Pulse Ox 97.9 F 87 18 145/86 H 100 06/19/18 13:00 06/19/18 13:00 06/19/18 13:00 06/19/18 13:00 06/19/18 13:00 Intake & Output 06/18/18 06/19/18 06/20/18 06:59 06:59 06:59 Weight 70.6 kg Results Laboratory Results: 06/19/18 09:15 06/19/18 05:59 06/19/18 06/19/18 06/19/18 01:26 05:59 05:59 WBC Cancelled RBC Cancelled Hgb Cancelled Hct Cancelled MCV Cancelled MCH Cancelled MCHC Cancelled RDW Cancelled Plt Count Cancelled Seg Neutrophils % Cancelled Lymphocytes % Cancelled Monocytes % Cancelled Eosinophils % Cancelled Basophils % Cancelled Absolute Neutrophils Cancelled Absolute Lymphocytes Cancelled Absolute Monocytes Cancelled Absolute Eosinophils Cancelled Absolute Basophils Cancelled Sodium 147.7 H Potassium 4.3 D Chloride 121 H Carbon Dioxide 12 L Anion Gap 15 BUN 21 H Creatinine 1.03 Est GFR ( Amer) > 60 Est GFR (Non-Af Amer) 54 L Glucose 121 H Lactic Acid 0.7 Calcium 9.0 06/19/18 06/19/18 08:00 09:15 WBC Cancelled 11.2 H RBC Cancelled 4.36 Hgb Cancelled 13.7 D Hct Cancelled 39.7 MCV Cancelled 91 MCH Cancelled 31.5 MCHC Cancelled 34.6 RDW Cancelled 12.8 Plt Count Cancelled 312 Seg Neutrophils % Cancelled 75.4 Lymphocytes % Cancelled 19.8 Monocytes % Cancelled 4.1 Eosinophils % Cancelled 0.0 Basophils % Cancelled 0.7 Absolute Neutrophils Cancelled 8.4 H Absolute Lymphocytes Cancelled 2.2 Absolute Monocytes Cancelled 0.5 Absolute Eosinophils Cancelled 0.0 Absolute Basophils Cancelled 0.1 Sodium Potassium Chloride Carbon Dioxide Anion Gap BUN Creatinine Est GFR ( Amer) Est GFR (Non-Af Amer) Glucose Lactic Acid Calcium Impressions: Abdomen/Pelvis CT 06/18/18 19:51 IMPRESSION: Intrarenal calculi bilaterally. Mild right hydronephrosis/ hydroureter that appears to be secondary to a couple of 2 mm calcifications in the mid to distal ureter. Assessment & Plan - Diagnosis (1) Complicated UTI (urinary tract infection) Is this a current diagnosis for this admission?: Yes Plan: Continue antibiotics. (2) Rt nephrolithiasis and hydronephrosis Is this a current diagnosis for this admission?: Yes Plan: Patient evaluated by who scheduled her for placement of right ureteral stent (3) Hypokalemia Is this a current diagnosis for this admission?: Yes Plan: Resolved (4) Hypocalcemia Is this a current diagnosis for this admission?: Yes Plan: Resolved (5) COPD (chronic obstructive pulmonary disease) Qualifiers: Emphysema type: unspecified Is this a current diagnosis for this admission?: Yes Plan: Is not in distress or shortness of breath. She is on as needed bronchodilators. (6) Coronary artery disease Is this a current diagnosis for this admission?: Yes (7) Hypertension Qualifiers: Hypertension type: essential hypertension Qualified Code(s): I10 - Essential (primary) hypertension Is this a current diagnosis for this admission?: Yes Plan: Continue home medication (8) Hyperlipidemia Qualifiers: Hyperlipidemia type: unspecified Qualified Code(s): E78.5 - Hyperlipidemia , unspecified Is this a current diagnosis for this admission?: Yes Plan: Continue home medication (9) Type 2 diabetes mellitus Is this a current diagnosis for this admission?: Yes Plan: Stable. Continue sliding scale. (10) History of seizure disorder Is this a current diagnosis for this admission?: Yes Plan: In remission
--- NOTE | 2018-06-19 15:59 | RADIOLOGY REPORT (SQ) ---
EXAM DESCRIPTION: CHEST SINGLE VIEW COMPLETED DATE/TIME: 06/19/2018 3:50 pm REASON FOR STUDY: preop COMPARISON: 02/16/2018. EXAM PARAMETERS: NUMBER OF VIEWS: One view. TECHNIQUE: Single frontal radiographic view of the chest acquired. RADIATION DOSE: NA LIMITATIONS: None. FINDINGS: LUNGS AND PLEURA: No opacities, masses or pneumothorax. No pleural effusion. MEDIASTINUM AND HILAR STRUCTURES: No masses. Contour normal. HEART AND VASCULAR STRUCTURES: Heart normal in size. Normal vasculature. BONES: No acute findings. HARDWARE: None in the chest. OTHER: No other significant finding. IMPRESSION: NO ACUTE RADIOGRAPHIC FINDING IN THE CHEST. TECHNICAL DOCUMENTATION: JOB ID: [id number] [employer]- All Rights Reserved Reading location - IP/workstation name: [email or web address]
[2018-06-19 16:08] LABS: ARTERIAL BLOOD BASE EXCESS -15.6 mmol/L; ARTERIAL BLOOD H2CO3 0.81 mmol/L (1.05-1.35); ARTERIAL BLOOD HCO3 10.6 mmol/L (20-26); ARTERIAL BLOOD O2 SATURATION 95.9 % (94-98); ARTERIAL BLOOD PCO2 26.9 mmHg (35-45); ARTERIAL BLOOD PH 7.21 (7.35-7.45); ARTERIAL BLOOD PO2 94.1 mmHg (80-100); ARTERIAL BLOOD TOTAL CO2 11.4 mmol/L (21-25)
[2018-06-19 16:09] LABS: ARTERIAL BLOOD FIO2 ROOM AIR
[2018-06-19] MEDS ORDERED: PROPOFOL INJ 200 MG/20 ML VIAL IV ONE (17:53)
[2018-06-19] MEDS ORDERED: FENTANYL CITRATE INJ/PF 100 MCG/2 ML AMPUL ONE (17:53)
[2018-06-19] MEDS ORDERED: LIDOCAINE 2% INJ-PF (20 MG/ML) 10 ML AMPUL ONE (17:53)
[2018-06-19] MEDS ORDERED: MIDAZOLAM 2 MG/2 ML INJ ONE (17:53)
[2018-06-19] MEDS ORDERED: SODIUM BICARBONATE 4.2% INJ (2.5 MEQ/5 ML) VIAL ONE (18:06)
[2018-06-19] MEDS ORDERED: FAMOTIDINE INJ/PF 20 MG/2 ML SDV IV ONE (18:09)
--- NOTE | 2018-06-19 18:22 | PDOC PROGRESS REPORT ---
Subjective Progress Note for:: 06/19/18 Reason For Visit: UTI; HYPOKALEMIA Physical Exam Vital Signs: Temp Pulse Resp BP Pulse Ox 98.4 F 93 17 137/55 H 100 06/19/18 16:52 06/19/18 16:52 06/19/18 16:52 06/19/18 16:52 06/19/18 16:52 Intake & Output 06/18/18 06/19/18 06/20/18 06:59 06:59 06:59 Weight 70.6 kg Results Laboratory Results: 06/19/18 09:15 06/19/18 05:59 06/19/18 06/19/18 06/19/18 01:26 05:59 05:59 WBC Cancelled RBC Cancelled Hgb Cancelled Hct Cancelled MCV Cancelled MCH Cancelled MCHC Cancelled RDW Cancelled Plt Count Cancelled Seg Neutrophils % Cancelled Lymphocytes % Cancelled Monocytes % Cancelled Eosinophils % Cancelled Basophils % Cancelled Absolute Neutrophils Cancelled Absolute Lymphocytes Cancelled Absolute Monocytes Cancelled Absolute Eosinophils Cancelled Absolute Basophils Cancelled Carbonic Acid HCO3/H2CO3 Ratio ABG pH ABG pCO2 ABG pO2 ABG HCO3 ABG O2 Saturation ABG Base Excess FiO2 Sodium 147.7 H Potassium 4.3 D Chloride 121 H Carbon Dioxide 12 L Anion Gap 15 BUN 21 H Creatinine 1.03 Est GFR ( Amer) > 60 Est GFR (Non-Af Amer) 54 L Glucose 121 H Lactic Acid 0.7 Calcium 9.0 06/19/18 06/19/18 06/19/18 08:00 09:15 15:41 WBC Cancelled 11.2 H RBC Cancelled 4.36 Hgb Cancelled 13.7 D Hct Cancelled 39.7 MCV Cancelled 91 MCH Cancelled 31.5 MCHC Cancelled 34.6 RDW Cancelled 12.8 Plt Count Cancelled 312 Seg Neutrophils % Cancelled 75.4 Lymphocytes % Cancelled 19.8 Monocytes % Cancelled 4.1 Eosinophils % Cancelled 0.0 Basophils % Cancelled 0.7 Absolute Neutrophils Cancelled 8.4 H Absolute Lymphocytes Cancelled 2.2 Absolute Monocytes Cancelled 0.5 Absolute Eosinophils Cancelled 0.0 Absolute Basophils Cancelled 0.1 Carbonic Acid 0.81 L HCO3/H2CO3 Ratio 13:1 ABG pH 7.21 L ABG pCO2 26.9 L ABG pO2 94.1 ABG HCO3 10.6 L ABG O2 Saturation 95.9 ABG Base Excess -15.6 FiO2 ROOM AIR Sodium Potassium Chloride Carbon Dioxide Anion Gap BUN Creatinine Est GFR ( Amer) Est GFR (Non-Af Amer) Glucose Lactic Acid Calcium Impressions: Abdomen/Pelvis CT 06/18/18 19:51 IMPRESSION: Intrarenal calculi bilaterally. Mild right hydronephrosis/ hydroureter that appears to be secondary to a couple of 2 mm calcifications in the mid to distal ureter. Chest X-Ray 06/19/18 15:27 IMPRESSION: NO ACUTE RADIOGRAPHIC FINDING IN THE CHEST. Assessment & Plan - Plan Summary Plan Summary: i came to take patient to OR for insertion of right ureteral catheter, the anesthesiologist did ABG on the patient and her PH was 7.2 in addition to abnormal bicarb. her WBC is normal, no shift to the left , her Cr is 1.0,she is on Rocephin , discussing her caes with anesthesia, she is not septic, the indication for the surgery is pain control for which she is taking narcotics. decision was to transfer her to the floor again and consult with her syrup maker to reevaluate her before subjecting her to anesthesia.
[2018-06-19] MEDS: DEXTROSE 5%-WATER 1000 ML 1,000 ML with SODIUM BICARBONATE 100 MEQ IV PRN ×2 (20:48)
[2018-06-19] MEDS: CEFTRIAXONE SODIUM 1,000 MG in DEXTROSE 5%-WATER 50 ML IV SCH (21:21)
[2018-06-19] MEDS ORDERED: CEFTRIAXONE 1 GM/D5W RTU 1 GM/50 ML RTUPB IV SCH (22:00)
[2018-06-20] MEDS: HYDROMORPHONE HCL INJ/PF 2 MG/ML AMPULE IV PRN ×5 (01:14→20:42)
[2018-06-20] MEDS: ONDANSETRON HCL INJ/PF 4 MG/2 ML SDV IV PRN ×3 (03:59→16:36)
[2018-06-20] MEDS: DEXTROSE 5%-WATER 1000 ML 1,000 ML with SODIUM BICARBONATE 100 MEQ IV PRN ×2 (08:27)
--- NOTE | 2018-06-20 09:44 | PDOC PROGRESS REPORT ---
Subjective Progress Note for:: 06/20/18 Reason For Visit: UTI; HYPOKALEMIA Physical Exam Vital Signs: Temp Pulse Resp BP Pulse Ox 98.3 F 70 16 144/61 H 100 06/20/18 03:48 06/20/18 06:57 06/20/18 03:48 06/20/18 03:48 06/20/18 03:48 Intake & Output 06/19/18 06/20/18 06/21/18 06:59 06:59 06:59 Intake Total 1050 1100 Balance 1050 1100 Weight 70.6 kg 70.1 kg Results Laboratory Results: 06/19/18 09:15 06/19/18 05:59 06/19/18 06/19/18 06/19/18 05:09 09:15 15:41 WBC 11.2 H RBC 4.36 Hgb 13.7 D Hct 39.7 MCV 91 MCH 31.5 MCHC 34.6 RDW 12.8 Plt Count 312 Seg Neutrophils % 75.4 Lymphocytes % 19.8 Monocytes % 4.1 Eosinophils % 0.0 Basophils % 0.7 Absolute Neutrophils 8.4 H Absolute Lymphocytes 2.2 Absolute Monocytes 0.5 Absolute Eosinophils 0.0 Absolute Basophils 0.1 Carbonic Acid 0.81 L HCO3/H2CO3 Ratio 13:1 ABG pH 7.21 L ABG pCO2 26.9 L ABG pO2 94.1 ABG HCO3 10.6 L ABG O2 Saturation 95.9 ABG Base Excess -15.6 FiO2 ROOM AIR Phosphorus 4.8 H Impressions: Abdomen/Pelvis CT 06/18/18 19:51 IMPRESSION: Intrarenal calculi bilaterally. Mild right hydronephrosis/ hydroureter that appears to be secondary to a couple of 2 mm calcifications in the mid to distal ureter. Chest X-Ray 06/19/18 15:27 IMPRESSION: NO ACUTE RADIOGRAPHIC FINDING IN THE CHEST. Assessment & Plan - Plan Summary Plan Summary: patient still complains of flank pain, spoke with her hospitalist to check on her status of acidosis, he said ull get back to me, no new ABG yet and no new blood work, discussed her case with the benefits assistant.awaiting follow up on her medical condition to decide for further management of the ureteral stone
[2018-06-20] MEDS ORDERED: HYDROMORPHONE HCL INJ/PF 2 MG/ML AMPULE IV ONE (10:44)
[2018-06-20 10:50] LABS: ARTERIAL BLOOD H2CO3 0.91 mmol/L (1.05-1.35); ARTERIAL BLOOD HCO3 17.8 mmol/L (20-26); ARTERIAL BLOOD O2 SATURATION 96.8 % (94-98); ARTERIAL BLOOD PCO2 30.2 mmHg (35-45); ARTERIAL BLOOD PH 7.39 (7.35-7.45); ARTERIAL BLOOD PO2 88.8 mmHg (80-100); ARTERIAL BLOOD TOTAL CO2 18.8 mmol/L (21-25)
[2018-06-20 10:53] LABS: ARTERIAL BLOOD FIO2 ROOM AIR
[2018-06-20 11:10] LABS: ABSOLUTE BASOPHILS # (AUTO) 0.1 10^3/uL (0.0-0.2); ABSOLUTE LYMPHOCYTES (AUTO) 2.1 10^3/uL (0.5-4.7); ABSOLUTE MONOCYTES (AUTO) 0.5 10^3/uL (0.1-1.4); ABSOLUTE NEUT (AUTO) 5.1 10^3/uL (1.7-8.2); BASOPHILS % (AUTO) 0.9 % (0-2); HEMATOCRIT 36.2 % (36.0-47.0); LYMPHOCYTES % (AUTO) 27.5 % (13-45); MEAN CORPUSCULAR HEMOGLOBIN 32.1 pg (27.0-33.4); MEAN CORPUSCULAR HGB CONC 35.9 g/dL (32.0-36.0); MEAN CORPUSCULAR VOLUME 89 fl (80-97); MONOCYTES % (AUTO) 5.8 % (3-13); PLATELET COUNT 280 10^3/uL (150-450); RED BLOOD COUNT 4.05 10^6/uL (3.72-5.28); RED CELL DISTRIBUTION WIDTH 13.1 % (11.5-14.0); SEGMENTED NEUTROPHILS % (AUTO) 65.8 % (42-78); TOTAL CELLS COUNTED % (AUTO) 100 %; WHITE BLOOD COUNT 7.8 10^3/uL (4.0-10.5)
[2018-06-20 11:35] LABS: ANION GAP 14 (5-19); BLOOD UREA NITROGEN 11 mg/dL (7-20); CALCIUM 9.5 mg/dL (8.4-10.2); CARBON DIOXIDE 19 mmol/L (22-30); CHLORIDE 113 mmol/L (98-107); GLUCOSE 141 mg/dL (75-110); SODIUM 145.6 mmol/L (137-145)
[2018-06-20 11:41] LABS: POTASSIUM 2.9 mmol/L (3.6-5.0)
[2018-06-20] MEDS: POTASSI CL 20 MEQ/50 ML RIDER 20 MEQ/50 ML RTUPB IV SCH ×4 (12:18→20:37)
[2018-06-20] MEDS: ENOXAPARIN SODIUM INJ 30 MG/0.3 ML DISP.SYRIN SUBCUT SCH (12:31)
[2018-06-20] MEDS: DIPHENHYDRAMINE HCL 25 MG/10 ML UDC PO PRN ×2 (13:03→20:36)
--- NOTE | 2018-06-20 16:25 | PDOC PROGRESS REPORT ---
Subjective Subjective:: This is 62 years old female patient presented with chief complaint of right is, nausea and vomiting. CT scan is positive for intrarenal calculi bilaterally and mild right hydronephrosis/hydroureter that appears to be secondary to a couple of 2 mm calcifications in the mid to distal ureter. I consulted who scheduled the patient for a right ureteral double-J stent placement this morning the procedure performed by anesthesiologist because the patient has metabolic acidosis. Now the metabolic acidosis corrected her ABGs normal but patient found to have also hypokalemia with potassium of 2.8. Currently she is getting for care either. If her blood works remain normal patient will have the procedure. Patient has been on ceftriaxone for complicated UTI. This morning I seen patient resting in bed. She is complaining of right flank pain so I increased the dose of her Dilaudid to 2 mg IV every every 4 hours as needed. Reason For Visit: UTI; HYPOKALEMIA Physical Exam Vital Signs: Temp Pulse Resp BP Pulse Ox 98.9 F 71 12 149/63 H 100 06/20/18 11:26 06/20/18 11:26 06/20/18 11:26 06/20/18 11:26 06/20/18 11:26 Intake & Output 06/19/18 06/20/18 06/21/18 06:59 06:59 06:59 Intake Total 1050 1142 Balance 1050 1142 Weight 70.6 kg 70.1 kg General appearance: PRESENT: no acute distress Head exam: PRESENT: atraumatic Eye exam: PRESENT: conjunctiva pink Mouth exam: PRESENT: moist Neck exam: ABSENT: carotid bruit, JVD, lymphadenopathy, thyromegaly Respiratory exam: PRESENT: clear to auscultation mal. ABSENT: rales, rhonchi, wheezes Cardiovascular exam: PRESENT: RRR. ABSENT: diastolic murmur, rubs, systolic murmur Vascular exam: PRESENT: normal capillary refill Gentrourinary exam: PRESENT: other - Right CVA tenderness Extremities exam: PRESENT: full ROM. ABSENT: calf tenderness, clubbing, pedal edema Neurological exam: PRESENT: alert, awake, oriented to time, oriented to situation Psychiatric exam: PRESENT: normal mood Results Laboratory Results: 06/20/18 10:28 06/19/18 06/20/18 06/20/18 05:09 10:28 10:28 WBC 7.8 RBC 4.05 Hgb 13.0 Hct 36.2 MCV 89 MCH 32.1 MCHC 35.9 RDW 13.1 Plt Count 280 Seg Neutrophils % 65.8 Lymphocytes % 27.5 Monocytes % 5.8 Eosinophils % 0.0 Basophils % 0.9 Absolute Neutrophils 5.1 Absolute Lymphocytes 2.1 Absolute Monocytes 0.5 Absolute Eosinophils 0.0 Absolute Basophils 0.1 Carbonic Acid HCO3/H2CO3 Ratio ABG pH ABG pCO2 ABG pO2 ABG HCO3 ABG O2 Saturation ABG Base Excess FiO2 Sodium 145.6 H Potassium 2.9 L* Chloride 113 H Carbon Dioxide 19 L Anion Gap 14 BUN 11 Creatinine 0.63 Est GFR ( Amer) > 60 Est GFR (Non-Af Amer) > 60 Glucose 141 H Calcium 9.5 Phosphorus 4.8 H 06/20/18 10:40 WBC RBC Hgb Hct MCV MCH MCHC RDW Plt Count Seg Neutrophils % Lymphocytes % Monocytes % Eosinophils % Basophils % Absolute Neutrophils Absolute Lymphocytes Absolute Monocytes Absolute Eosinophils Absolute Basophils Carbonic Acid 0.91 L HCO3/H2CO3 Ratio 19:1 ABG pH 7.39 ABG pCO2 30.2 L ABG pO2 88.8 ABG HCO3 17.8 L ABG O2 Saturation 96.8 ABG Base Excess -6.0 FiO2 ROOM AIR Sodium Potassium Chloride Carbon Dioxide Anion Gap BUN Creatinine Est GFR ( Amer) Est GFR (Non-Af Amer) Glucose Calcium Phosphorus Impressions: Abdomen/Pelvis CT 06/18/18 19:51 IMPRESSION: Intrarenal calculi bilaterally. Mild right hydronephrosis/ hydroureter that appears to be secondary to a couple of 2 mm calcifications in the mid to distal ureter. Chest X-Ray 06/19/18 15:27 IMPRESSION: NO ACUTE RADIOGRAPHIC FINDING IN THE CHEST. Assessment & Plan - Diagnosis (1) Complicated UTI (urinary tract infection) Is this a current diagnosis for this admission?: Yes Plan: Continue ceftriaxone (2) Rt nephrolithiasis and hydronephrosis Is this a current diagnosis for this admission?: Yes Plan: Patient evaluated by who scheduled her for placement of right ureteral stent (3) Hypokalemia Is this a current diagnosis for this admission?: Yes Plan: Patient has been getting care. (4) Hypocalcemia Is this a current diagnosis for this admission?: Yes Plan: Resolved (5) COPD (chronic obstructive pulmonary disease) Qualifiers: Emphysema type: unspecified Is this a current diagnosis for this admission?: Yes Plan: Is not in distress or shortness of breath. She is on as needed bronchodilators. (6) Coronary artery disease Is this a current diagnosis for this admission?: Yes Plan: Continue home medications (7) Hypertension Qualifiers: Hypertension type: essential hypertension Qualified Code(s): I10 - Essential (primary) hypertension Is this a current diagnosis for this admission?: Yes Plan: Continue home medication (8) Hyperlipidemia Qualifiers: Hyperlipidemia type: unspecified Qualified Code(s): E78.5 - Hyperlipidemia , unspecified Is this a current diagnosis for this admission?: Yes Plan: Continue home medication (9) Type 2 diabetes mellitus Is this a current diagnosis for this admission?: Yes Plan: Stable. Continue sliding scale. (10) History of seizure disorder Is this a current diagnosis for this admission?: Yes Plan: In remission
[2018-06-20 16:34] LABS: ANION GAP 13 (5-19); BLOOD UREA NITROGEN 9 mg/dL (7-20); CALCIUM 9.2 mg/dL (8.4-10.2); CARBON DIOXIDE 19 mmol/L (22-30); CHLORIDE 113 mmol/L (98-107); GLUCOSE 165 mg/dL (75-110); PHOSPHORUS 2.7 mg/dL (2.5-4.5); POTASSIUM 3.2 mmol/L (3.6-5.0); SODIUM 144.5 mmol/L (137-145)
[2018-06-20 17:23] LABS: ARTERIAL BLOOD BASE EXCESS -3.3 mmol/L; ARTERIAL BLOOD FIO2 21%; ARTERIAL BLOOD HCO3 20.5 mmol/L (20-26); ARTERIAL BLOOD O2 SATURATION 96.4 % (94-98); ARTERIAL BLOOD PCO2 33.3 mmHg (35-45); ARTERIAL BLOOD PH 7.41 (7.35-7.45); ARTERIAL BLOOD PO2 83.1 mmHg (80-100); ARTERIAL BLOOD TOTAL CO2 21.6 mmol/L (21-25)
[2018-06-20] MEDS ORDERED: KETAMINE HCL INJ 500 MG/10 ML VIAL ONE (17:27)
[2018-06-20] MEDS ORDERED: FENTANYL CITRATE INJ/PF 100 MCG/2 ML AMPUL ONE (17:27)
[2018-06-20] MEDS ORDERED: EPHEDRINE SULFATE INJ 50 MG/1 ML AMPULE ONE (17:28)
[2018-06-20] MEDS ORDERED: MIDAZOLAM 2 MG/2 ML INJ ONE (17:28)
[2018-06-20] MEDS ORDERED: PROPOFOL INJ 200 MG/20 ML VIAL IV ONE (17:28)
[2018-06-20] MEDS ORDERED: POLYETHYLENE GLYCOL 3350 POWDER 17 GM/1 PACKET PO SCH (18:00)
--- NOTE | 2018-06-20 18:30 | Operative Report ---
Operative Report DATE OF SURGERY: 06/20/18 PREOPERATIVE DIAGNOSIS: obstructing right ureteral stone POSTOPERATIVE DIAGNOSIS: same OPERATION: cystoscopy, right retrograde and insertion of rt double j catheter SURGEON: JONNA MENDOZA ANESTHESIA: GA COMPLICATIONS: none ESTIMATED BLOOD LOSS: 0 INTRAOPERATIVE FINDINGS: see note of surgery PROCEDURE: with the patient in lithotomy position after the induction of anesthesia, the area srubbed and draped , #21 cystoscope was inserted , bladder inspected, right orifice identified, guide wire was inserted then retrograde done, then #26 -4.8 double j catheter was inserted in position, under flouscopy guidance. patient tolerated procedure and left the OR in good condition
--- NOTE | 2018-06-20 18:47 | RADIOLOGY REPORT (SQ) ---
EXAM DESCRIPTION: PYELOGRAM RETROGRADE COMPLETED DATE/TIME: 06/20/2018 6:35 pm REASON FOR STUDY: RT STENT PLACEMENT COMPARISON: None. FLUOROSCOPY TIME: 0.25 1 images saved to PACS. TECHNIQUE: Intra-operative images acquired during surgical procedure to evaluate progress. NUMBER OF IMAGES: 1 LIMITATIONS: None. FINDINGS: An image obtained with fluoro shows contrast in the right renal collecting system. IMPRESSION: Retrograde pyelogram. Refer to operative note for further information. COMMENT: Quality ID [id number]: Final reports for procedures using fluoroscopy that document radiation exp osure indices, or exposure time and number of fluorographic images (if radiation exposure indices are not available) Please consult full operative report of the attending physician for description of the procedure. TECHNICAL DOCUMENTATION: JOB ID: [id number] [employer] All Rights Reserved Reading location - IP/workstation name: [email or web address]
[2018-06-20] MEDS ORDERED: NORMAL SALINE 1000 ML 1,000 ML IV PRN (20:39)
[2018-06-20] MEDS: CEFTRIAXONE SODIUM 1,000 MG in DEXTROSE 5%-WATER 50 ML IV SCH (23:08)
[2018-06-21] MEDS: HYDROMORPHONE HCL INJ/PF 2 MG/ML AMPULE IV PRN ×6 (01:10→22:28)
[2018-06-21] MEDS: ONDANSETRON HCL INJ/PF 4 MG/2 ML SDV IV PRN ×4 (01:14→19:43)
[2018-06-21] MEDS: DIPHENHYDRAMINE HCL 25 MG/10 ML UDC PO PRN ×3 (03:58→19:42)
[2018-06-21 06:59] LABS: HEMATOCRIT 35.4 % (36.0-47.0); HEMOGLOBIN 12.7 g/dL (12.0-15.5); MEAN CORPUSCULAR HEMOGLOBIN 32.4 pg (27.0-33.4); MEAN CORPUSCULAR HGB CONC 35.9 g/dL (32.0-36.0); MEAN CORPUSCULAR VOLUME 90 fl (80-97); PLATELET COUNT 265 10^3/uL (150-450); RED BLOOD COUNT 3.92 10^6/uL (3.72-5.28); RED CELL DISTRIBUTION WIDTH 13.2 % (11.5-14.0); WHITE BLOOD COUNT 8.3 10^3/uL (4.0-10.5)
[2018-06-21 07:14] LABS: ANION GAP 12 (5-19); BLOOD UREA NITROGEN 6 mg/dL (7-20); CALCIUM 9.1 mg/dL (8.4-10.2); CARBON DIOXIDE 20 mmol/L (22-30); CHLORIDE 116 mmol/L (98-107); GLUCOSE 126 mg/dL (75-110); POTASSIUM 3.5 mmol/L (3.6-5.0); SODIUM 147.8 mmol/L (137-145)
[2018-06-21 08:18] LABS: ABSOLUTE LYMPHOCYTES# (MANUAL) 2.4 10^3/uL (0.5-4.7); ABSOLUTE MONOCYTES # (MANUAL) 0.5 10^3/uL (0.1-1.4); ABSOLUTE NEUTROPHILS# (MANUAL) 5.3 10^3/uL (1.7-8.2); BASOPHILS % (MANUAL) 1 % (0-2); EOSINOPHILS % (MANUAL) 0 % (0-6); LYMPHOCYTES % (MANUAL) 29 % (13-45); MONOCYTES % (MANUAL) 6 % (3-13); PLATELET COMMENT ADEQUATE; POLYCHROMASIA SLIGHT; SEGMENTED NEUTROPHILS % (MAN) 64 % (42-78); TOTAL CELLS COUNTED 100
[2018-06-21] MEDS ORDERED: DEXTROSE 5%-WATER 1000 ML 1,000 ML IV SCH (10:30)
[2018-06-21] MEDS: ENOXAPARIN SODIUM INJ 30 MG/0.3 ML DISP.SYRIN SUBCUT SCH (11:12)
[2018-06-21] MEDS: POTASSIUM CHLORIDE 10 MEQ CAPSULE.ER PO SCH (11:19)
[2018-06-21] MEDS ORDERED: BISACODYL 10 MG SUPP.RECT PR PRN (13:10)
[2018-06-21] MEDS ORDERED: DOCUSATE SODIUM 100 MG CAPSULE PO ONE (13:45)
[2018-06-21] MEDS: POLYETHYLENE GLYCOL 3350 POWDER 17 GM/1 PACKET PO PRN (14:48)
--- NOTE | 2018-06-21 17:18 | PDOC PROGRESS REPORT ---
Subjective Progress Note for:: 06/21/18 - seen on rounds this morning Subjective:: states she's having right back pain and abdominal pain Reason For Visit: UTI; HYPOKALEMIA Physical Exam Vital Signs: Temp Pulse Resp BP Pulse Ox 99.2 F 77 18 144/72 H 100 06/21/18 16:43 06/21/18 16:43 06/21/18 16:43 06/21/18 16:43 06/21/18 16:43 Intake & Output 06/20/18 06/21/18 06/22/18 06:59 06:59 06:59 Intake Total 1050 3028 Balance 1050 3028 Weight 154 lb 8.705 oz General appearance: PRESENT: no acute distress, well-developed, well-nourished. ABSENT: mild distress Head exam: PRESENT: atraumatic, normocephalic Eye exam: PRESENT: EOMI, PERRLA. ABSENT: scleral icterus Ear exam: PRESENT: normal external ear exam Mouth exam: PRESENT: neck supple, tongue midline Neck exam: PRESENT: full ROM. ABSENT: tracheal deviation Respiratory exam: PRESENT: clear to auscultation mal, symmetrical. ABSENT: rhonchi, wheezes Cardiovascular exam: PRESENT: +S1, +S2 Pulses: PRESENT: +2 pedal pulses bilateral GI/Abdominal exam: PRESENT: normal bowel sounds, soft, tenderness - right CVAT and right sided abdominal TTP. ABSENT: Reis's sign Extremities exam: ABSENT: tenderness, +2 edema Musculoskeletal exam: ABSENT: tenderness Neurological exam: PRESENT: alert, awake, oriented to person, oriented to place , oriented to time, oriented to situation, CN II-XII grossly intact Skin exam: PRESENT: dry, warm Results Laboratory Results: 06/21/18 05:52 06/21/18 05:52 06/20/18 06/21/18 06/21/18 17:10 05:52 05:52 WBC 8.3 RBC 3.92 Hgb 12.7 Hct 35.4 L MCV 90 MCH 32.4 MCHC 35.9 RDW 13.2 Plt Count 265 Seg Neutrophils % Not Reportable Lymphocytes % Not Reportable Monocytes % Not Reportable Eosinophils % Not Reportable Basophils % Not Reportable Absolute Neutrophils Not Reportable Absolute Lymphocytes Not Reportable Absolute Monocytes Not Reportable Absolute Eosinophils Not Reportable Absolute Basophils Not Reportable Carbonic Acid 1.00 L HCO3/H2CO3 Ratio 20:1 ABG pH 7.41 ABG pCO2 33.3 L ABG pO2 83.1 ABG HCO3 20.5 ABG O2 Saturation 96.4 ABG Base Excess -3.3 FiO2 21% Sodium 147.8 H Potassium 3.5 L Chloride 116 H Carbon Dioxide 20 L Anion Gap 12 BUN 6 L Creatinine 0.61 Est GFR ( Amer) > 60 Est GFR (Non-Af Amer) > 60 Glucose 126 H Calcium 9.1 Impressions: Abdomen/Pelvis CT 06/18/18 19:51 IMPRESSION: Intrarenal calculi bilaterally. Mild right hydronephrosis/ hydroureter that appears to be secondary to a couple of 2 mm calcifications in the mid to distal ureter. Chest X-Ray 06/19/18 15:27 IMPRESSION: NO ACUTE RADIOGRAPHIC FINDING IN THE CHEST. Retrograde Pyelogram 06/20/18 00:00 IMPRESSION: Retrograde pyelogram. Refer to operative note for further information. Assessment & Plan - Diagnosis (1) Complicated UTI (urinary tract infection) Is this a current diagnosis for this admission?: Yes Plan: c/w Rocephin for now. (2) Acute hypernatremia Is this a current diagnosis for this admission?: Yes Plan: D/C IV NS and started on IV D5W for now, repeat BMP in AM (3) Hyperlipidemia Qualifiers: Hyperlipidemia type: unspecified Qualified Code(s): E78.5 - Hyperlipidemia , unspecified Is this a current diagnosis for this admission?: Yes Plan: stable (4) Hypertension Qualifiers: Hypertension type: essential hypertension Qualified Code(s): I10 - Essential (primary) hypertension Is this a current diagnosis for this admission?: Yes Plan: stable (5) Rt nephrolithiasis and hydronephrosis Is this a current diagnosis for this admission?: Yes Plan: double J stent placed on 06/20/18 but urology - appreciate assistance (6) Type 2 diabetes mellitus Is this a current diagnosis for this admission?: Yes Plan: stable, not on meds currently
[2018-06-21] MEDS: DOCUSATE SODIUM 100 MG CAPSULE PO SCH (17:21)
[2018-06-21] MEDS: CEFTRIAXONE SODIUM 1,000 MG in DEXTROSE 5%-WATER 50 ML IV SCH (22:32)
[2018-06-22] MEDS: ONDANSETRON HCL INJ/PF 4 MG/2 ML SDV IV PRN ×5 (01:53→20:21)
[2018-06-22] MEDS: HYDROMORPHONE HCL INJ/PF 2 MG/ML AMPULE IV PRN ×7 (01:53→22:23)
[2018-06-22] MEDS: DIPHENHYDRAMINE HCL 25 MG/10 ML UDC PO PRN ×4 (02:04→22:23)
[2018-06-22 06:09] LABS: ANION GAP 14 (5-19); BLOOD UREA NITROGEN 6 mg/dL (7-20); CALCIUM 9.4 mg/dL (8.4-10.2); CARBON DIOXIDE 18 mmol/L (22-30); CHLORIDE 116 mmol/L (98-107); GLUCOSE 141 mg/dL (75-110); POTASSIUM 3.5 mmol/L (3.6-5.0); SODIUM 147.5 mmol/L (137-145)
[2018-06-22] MEDS: DOCUSATE SODIUM 100 MG CAPSULE PO SCH ×2 (09:27→18:36)
[2018-06-22] MEDS: POTASSIUM CHLORIDE 10 MEQ CAPSULE.ER PO SCH (09:29)
[2018-06-22] MEDS: ENOXAPARIN SODIUM INJ 30 MG/0.3 ML DISP.SYRIN SUBCUT SCH (09:29)
[2018-06-22] MEDS ORDERED: DEXTROSE 5%-WATER 1000 ML 1,000 ML IV PRN (16:00)
--- NOTE | 2018-06-22 16:34 | PDOC PROGRESS REPORT ---
Subjective Progress Note for:: 06/22/18 - seen on rounds this afternoon Subjective:: states she still has right back pain- pain comes to the front on the right side. Reason For Visit: UTI; HYPOKALEMIA Physical Exam Vital Signs: Temp Pulse Resp BP Pulse Ox 98.7 F 81 16 177/67 H 100 06/22/18 16:00 06/22/18 16:00 06/22/18 16:00 06/22/18 16:00 06/22/18 16:00 Intake & Output 06/21/18 06/22/18 06/23/18 06:59 06:59 06:59 Intake Total 3028 195 Balance 3028 195 Weight 158 lb 4.67 oz General appearance: PRESENT: no acute distress, well-developed, well-nourished Head exam: PRESENT: atraumatic, normocephalic Eye exam: PRESENT: EOMI, PERRLA Ear exam: PRESENT: normal external ear exam Mouth exam: PRESENT: neck supple, tongue midline Neck exam: ABSENT: tracheal deviation Respiratory exam: PRESENT: clear to auscultation mal, symmetrical. ABSENT: wheezes Pulses: PRESENT: +2 pedal pulses bilateral GI/Abdominal exam: PRESENT: normal bowel sounds, soft, tenderness - right CVAT and right abdominal TTP Extremities exam: ABSENT: +2 edema Neurological exam: PRESENT: alert, awake, oriented to person, oriented to place , oriented to time, oriented to situation, reflexes normal, CN II-XII grossly intact Skin exam: PRESENT: dry, warm, other - some excoriations of the back Results Laboratory Results: 06/21/18 05:52 06/22/18 04:59 06/22/18 04:59 Sodium 147.5 H Potassium 3.5 L Chloride 116 H Carbon Dioxide 18 L Anion Gap 14 BUN 6 L Creatinine 0.69 Est GFR ( Amer) > 60 Est GFR (Non-Af Amer) > 60 Glucose 141 H Calcium 9.4 Impressions: Abdomen/Pelvis CT 06/18/18 19:51 IMPRESSION: Intrarenal calculi bilaterally. Mild right hydronephrosis/ hydroureter that appears to be secondary to a couple of 2 mm calcifications in the mid to distal ureter. Chest X-Ray 06/19/18 15:27 IMPRESSION: NO ACUTE RADIOGRAPHIC FINDING IN THE CHEST. Retrograde Pyelogram 06/20/18 00:00 IMPRESSION: Retrograde pyelogram. Refer to operative note for further information. Assessment & Plan - Diagnosis (1) Complicated UTI (urinary tract infection) Is this a current diagnosis for this admission?: Yes Plan: c/w Rocephin for now. stable. no Ucx on file upon arrival. Bcx negative (2) Acute hypernatremia Is this a current diagnosis for this admission?: Yes Plan: Na still high. IV NS was d/c'd. will start her on some IV D5W and repeat BMP in AM (3) Hyperlipidemia Qualifiers: Hyperlipidemia type: unspecified Qualified Code(s): E78.5 - Hyperlipidemia , unspecified Is this a current diagnosis for this admission?: Yes (4) Hypertension Qualifiers: Hypertension type: essential hypertension Qualified Code(s): I10 - Essential (primary) hypertension Is this a current diagnosis for this admission?: Yes (5) Rt nephrolithiasis and hydronephrosis Is this a current diagnosis for this admission?: Yes Plan: double J stent placed on 06/20/18 by urology - appreciate assistance- having some gross hematuria- will d/c lovenox and start on SCDs. this is common i believe after stent placement and anticoagulation. monitor for now. chest CBC in AM (6) Type 2 diabetes mellitus Is this a current diagnosis for this admission?: Yes Plan: stable, not on meds currently
[2018-06-22] MEDS ORDERED: DEXTROSE 40% GEL 15 GM TUBE X 2 PO PRN (17:15)
[2018-06-22] MEDS ORDERED: DEXTROSE 50%-WATER SYRINGE 12.5 GM/25 ML DOSE IV PRN (17:15)
[2018-06-22] MEDS ORDERED: DEXTROSE 50%-WATER SYRINGE 25 GM/50 ML DOSE IV PRN (17:15)
[2018-06-22] MEDS ORDERED: GLUCAGON,HUMAN RECOMB 1 MG INJ IM PRN (17:15)
[2018-06-22] MEDS ORDERED: DEXTROSE 40% GEL 15 GM TUBE PO PRN (17:15)
[2018-06-22] MEDS: INSULIN LISPRO 100 UNIT/ML 3 ML VIAL SUBCUT PRN ×2 (19:09→22:36)
[2018-06-22] MEDS: CEFTRIAXONE SODIUM 1,000 MG in DEXTROSE 5%-WATER 50 ML IV SCH (22:23)
[2018-06-23] MEDS: HYDROMORPHONE HCL INJ/PF 2 MG/ML AMPULE IV PRN ×8 (01:50→22:22)
[2018-06-23] MEDS: ONDANSETRON HCL INJ/PF 4 MG/2 ML SDV IV PRN ×5 (02:58→22:21)
[2018-06-23] MEDS: DIPHENHYDRAMINE HCL 25 MG/10 ML UDC PO PRN ×3 (07:04→22:20)
[2018-06-23 08:09] LABS: HEMATOCRIT 34.3 % (36.0-47.0); HEMOGLOBIN 12.2 g/dL (12.0-15.5); MEAN CORPUSCULAR HEMOGLOBIN 31.9 pg (27.0-33.4); MEAN CORPUSCULAR HGB CONC 35.6 g/dL (32.0-36.0); MEAN CORPUSCULAR VOLUME 90 fl (80-97); PLATELET COUNT 261 10^3/uL (150-450); RED BLOOD COUNT 3.83 10^6/uL (3.72-5.28); RED CELL DISTRIBUTION WIDTH 13.1 % (11.5-14.0); WHITE BLOOD COUNT 8.6 10^3/uL (4.0-10.5)
[2018-06-23 08:26] LABS: ANION GAP 11 (5-19); BLOOD UREA NITROGEN 5 mg/dL (7-20); CALCIUM 9.1 mg/dL (8.4-10.2); CARBON DIOXIDE 20 mmol/L (22-30); CHLORIDE 116 mmol/L (98-107); GLUCOSE 108 mg/dL (75-110); POTASSIUM 3.2 mmol/L (3.6-5.0); SODIUM 146.9 mmol/L (137-145)
[2018-06-23] MEDS: DOCUSATE SODIUM 100 MG CAPSULE PO SCH ×2 (10:22→17:13)
[2018-06-23] MEDS: POTASSIUM CHLORIDE 10 MEQ CAPSULE.ER PO SCH (10:24)
[2018-06-23] MEDS ORDERED: POTASSIUM CHLORIDE 10 MEQ CAPSULE.ER PO ONE (14:45)
--- NOTE | 2018-06-23 15:36 | PDOC PROGRESS REPORT ---
Subjective Progress Note for:: 06/23/18 Subjective:: Patient states that she has no acute complaints but does continue have some hematuria-does admit to this less than yesterday. Interim history by previous provider "This is 62 years old female patient presented with chief complaint of right is, nausea and vomiting. CT scan is positive for intrarenal calculi bilaterally and mild right hydronephrosis/hydroureter that appears to be secondary to a couple of 2 mm calcifications in the mid to distal ureter. I consulted who scheduled the patient for a right ureteral double-J stent placement this morning the procedure performed by anesthesiologist because the patient has metabolic acidosis. Now the metabolic acidosis corrected her ABGs normal but patient found to have also hypokalemia with potassium of 2.8. Currently she is getting for care either. If her blood works remain normal patient will have the procedure. Patient has been on ceftriaxone for complicated UTI. This morning I seen patient resting in bed. She is complaining of right flank pain so I increased the dose of her Dilaudid to 2 mg IV every every 4 hours as needed." Reason For Visit: UTI; HYPOKALEMIA Physical Exam Vital Signs: Temp Pulse Resp BP Pulse Ox 98.3 F 66 19 137/61 H 99 06/23/18 11:45 06/23/18 11:45 06/23/18 11:45 06/23/18 11:45 06/23/18 11:45 Intake & Output 06/22/18 06/23/18 06/24/18 06:59 06:59 06:59 Intake Total 1957 2232 Balance 1957 2232 Weight 158 lb 4.67 oz 159 lb 6.307 oz General appearance: PRESENT: no acute distress, well-developed, well-nourished Head exam: PRESENT: atraumatic, normocephalic Eye exam: PRESENT: EOMI. ABSENT: scleral icterus Ear exam: PRESENT: normal external ear exam Mouth exam: PRESENT: neck supple, tongue midline Neck exam: ABSENT: tracheal deviation Respiratory exam: PRESENT: clear to auscultation mal, decreased breath sounds - Bilaterally at the bases, symmetrical Cardiovascular exam: PRESENT: +S1, +S2 Pulses: PRESENT: +2 pedal pulses bilateral GI/Abdominal exam: PRESENT: normal bowel sounds, soft, tenderness - Right CVA tenderness and some right-sided abdominal tenderness Neurological exam: PRESENT: alert, awake, oriented to person, oriented to place , oriented to time, oriented to situation, CN II-XII grossly intact Skin exam: PRESENT: dry, warm Results Laboratory Results: 06/23/18 07:33 06/23/18 07:33 06/23/18 06/23/18 06/23/18 04:22 07:33 07:33 WBC 8.6 RBC 3.83 Hgb 12.2 Hct 34.3 L MCV 90 MCH 31.9 MCHC 35.6 RDW 13.1 Plt Count 261 Sodium Cancelled 146.9 H Potassium Cancelled 3.2 L Chloride Cancelled 116 H Carbon Dioxide Cancelled 20 L Anion Gap Cancelled 11 BUN Cancelled 5 L Creatinine Cancelled 0.68 Est GFR ( Amer) Cancelled > 60 Est GFR (Non-Af Amer) Cancelled > 60 Glucose Cancelled 108 Calcium Cancelled 9.1 Impressions: Abdomen/Pelvis CT 06/18/18 19:51 IMPRESSION: Intrarenal calculi bilaterally. Mild right hydronephrosis/ hydroureter that appears to be secondary to a couple of 2 mm calcifications in the mid to distal ureter. Chest X-Ray 06/19/18 15:27 IMPRESSION: NO ACUTE RADIOGRAPHIC FINDING IN THE CHEST. Retrograde Pyelogram 06/20/18 00:00 IMPRESSION: Retrograde pyelogram. Refer to operative note for further information. Assessment & Plan - Diagnosis (1) Complicated UTI (urinary tract infection) Is this a current diagnosis for this admission?: Yes (2) Acute hypernatremia Is this a current diagnosis for this admission?: Yes (3) Hyperlipidemia Qualifiers: Hyperlipidemia type: unspecified Qualified Code(s): E78.5 - Hyperlipidemia , unspecified Is this a current diagnosis for this admission?: Yes (4) Hypertension Qualifiers: Hypertension type: essential hypertension Qualified Code(s): I10 - Essential (primary) hypertension Is this a current diagnosis for this admission?: Yes (5) Rt nephrolithiasis and hydronephrosis Is this a current diagnosis for this admission?: Yes (6) Type 2 diabetes mellitus Is this a current diagnosis for this admission?: Yes - Plan Summary Plan Summary: Patient was admitted and a stent was placed by urology for hydronephrosis. Patient has been complaining of gross hematuria since placement of the stent. I have stopped her anticoagulation and started her on SCDs. I think we need to speak with urology tomorrow about possible discharge home since at this time she is only on IV Rocephin for her UTI. Blood cultures have remained negative. I think we can transition to p.o. antibiotics and follow-up with urology outpatient. She continues to have hyperkalemia and hence she is on potassium supplement. Will repeat blood work in the morning.
[2018-06-23] MEDS: INSULIN LISPRO 100 UNIT/ML 3 ML VIAL SUBCUT PRN (18:47)
[2018-06-23] MEDS: CEFTRIAXONE SODIUM 1,000 MG in DEXTROSE 5%-WATER 50 ML IV SCH (23:05)
[2018-06-24] MEDS: HYDROMORPHONE HCL INJ/PF 2 MG/ML AMPULE IV PRN ×6 (02:29→22:17)
[2018-06-24] MEDS: ONDANSETRON HCL INJ/PF 4 MG/2 ML SDV IV PRN ×3 (03:03→20:42)
[2018-06-24 06:03] LABS: ANION GAP 9 (5-19); BLOOD UREA NITROGEN 8 mg/dL (7-20); CALCIUM 9.1 mg/dL (8.4-10.2); CARBON DIOXIDE 21 mmol/L (22-30); CHLORIDE 116 mmol/L (98-107); GLUCOSE 169 mg/dL (75-110); POTASSIUM 3.9 mmol/L (3.6-5.0)
[2018-06-24] MEDS: POTASSIUM CHLORIDE 10 MEQ CAPSULE.ER PO SCH (09:54)
[2018-06-24] MEDS: DOCUSATE SODIUM 100 MG CAPSULE PO SCH ×2 (10:10→19:27)
[2018-06-24] MEDS: POLYETHYLENE GLYCOL 3350 POWDER 17 GM/1 PACKET PO PRN (10:10)
--- NOTE | 2018-06-24 12:02 | PDOC PROGRESS REPORT ---
Subjective Progress Note for:: 06/24/18 Subjective:: The patient is a pleasant 62-year-old female who presented to the emergency room with point recurrent right flank pain with associated nausea and vomiting. CT scan revealed an intrarenal calculi bilaterally and mild right hydronephrosis/hydroureter that appeared to be secondary to a couple of 2 mm calcifications in the mid to distal ureter. Dr. Ridley was consulted who took the patient to the operating room and placed a right ureteral double-J stent. She has had some electrolyte abnormalities that have been repleted. She is on IV ceftriaxone for a complicated UTI. This morning when I saw the patient she states that her flank pain is worse. She states that she also is having increased hematuria as well. She states she has had some mild nausea but no vomiting. No fever or shaking chills. She continues she has had she has not had a bowel movement this morning. She does report ongoing hematuria which seems to be worse today. She has not been seen by urology as of this morning. Reason For Visit: UTI; HYPOKALEMIA Physical Exam Vital Signs: Temp Pulse Resp BP Pulse Ox 97.8 F 60 16 141/53 H 99 06/24/18 07:14 06/24/18 07:14 06/24/18 07:14 06/24/18 07:14 06/24/18 07:14 Intake & Output 06/23/18 06/24/18 06/25/18 06:59 06:59 06:59 Intake Total 2233 1723 Balance 2233 1723 Weight 72.3 kg 72 kg General appearance: PRESENT: no acute distress, well-developed, well-nourished Head exam: PRESENT: atraumatic, normocephalic Mouth exam: PRESENT: moist, tongue midline Respiratory exam: PRESENT: clear to auscultation mal. ABSENT: rales, rhonchi, wheezes Cardiovascular exam: PRESENT: RRR. ABSENT: diastolic murmur, rubs, systolic murmur GI/Abdominal exam: PRESENT: other - Right sided tenderness along the entire right flank with some guarding. She has positive bowel sounds Rectal exam: PRESENT: deferred Extremities exam: PRESENT: full ROM. ABSENT: calf tenderness, clubbing, pedal edema Neurological exam: PRESENT: alert, awake, oriented to person, oriented to place , oriented to time, oriented to situation, CN II-XII grossly intact. ABSENT: motor sensory deficit Psychiatric exam: PRESENT: appropriate affect, normal mood. ABSENT: homicidal ideation, suicidal ideation Skin exam: PRESENT: dry, intact, warm. ABSENT: cyanosis, rash Results Laboratory Results: 06/23/18 07:33 06/24/18 04:26 06/24/18 04:26 Sodium 146.0 H Potassium 3.9 Chloride 116 H Carbon Dioxide 21 L Anion Gap 9 BUN 8 Creatinine 0.79 Est GFR ( Amer) > 60 Est GFR (Non-Af Amer) > 60 Glucose 169 H Calcium 9.1 06/18/18 22:55 Blood Blood Culture - Final NO GROWTH IN 5 DAYS 06/18/18 22:40 Blood Blood Culture - Final NO GROWTH IN 5 DAYS Impressions: Abdomen/Pelvis CT 06/18/18 19:51 IMPRESSION: Intrarenal calculi bilaterally. Mild right hydronephrosis/ hydroureter that appears to be secondary to a couple of 2 mm calcifications in the mid to distal ureter. Chest X-Ray 06/19/18 15:27 IMPRESSION: NO ACUTE RADIOGRAPHIC FINDING IN THE CHEST. Retrograde Pyelogram 06/20/18 00:00 IMPRESSION: Retrograde pyelogram. Refer to operative note for further information. Assessment & Plan - Diagnosis (1) Complicated UTI (urinary tract infection) Is this a current diagnosis for this admission?: Yes Plan: He will continue IV Rocephin. She states that she is having increased flank pain today. The patient had a urinalysis concerning for infection at the time of admission but unfortunately it does not appear that this was sent for culture. I will repeat a UA and urine culture today. (2) Rt nephrolithiasis and hydronephrosis Is this a current diagnosis for this admission?: Yes Plan: Status post double-J stent placement to the right ureter. We will await further recommendations from the urology service. I certainly appreciate their input. (3) Coronary artery disease Is this a current diagnosis for this admission?: Yes Plan: She will continue the current regimen. No complaints of chest pain (4) Hypocalcemia Is this a current diagnosis for this admission?: Yes Plan: This was repleted. Her calcium level is now normal (5) Hyperlipidemia Qualifiers: Hyperlipidemia type: unspecified Qualified Code(s): E78.5 - Hyperlipidemia , unspecified Is this a current diagnosis for this admission?: Yes Plan: Continue home regimen (6) Hypertension Qualifiers: Hypertension type: essential hypertension Qualified Code(s): I10 - Essential (primary) hypertension Is this a current diagnosis for this admission?: Yes (7) COPD (chronic obstructive pulmonary disease) Qualifiers: Emphysema type: unspecified Is this a current diagnosis for this admission?: Yes Plan: No evidence of exacerbation (8) Type 2 diabetes mellitus Is this a current diagnosis for this admission?: Yes Plan: Adequately controlled. Continue sliding-scale coverage (9) Hypokalemia Is this a current diagnosis for this admission?: Yes Plan: Repleted and resolved (10) History of seizure disorder Is this a current diagnosis for this admission?: Yes Plan: This has not been an issue in several years (11) Full code status Is this a current diagnosis for this admission?: Yes - Time Time Spent with patient: 25-34 minutes - Inpatient Certification Medical Necessity: Need for IV Antibiotics - Inpatient hospitalization remains necessary. The patient requiring parenteral antibiotics as well as parenteral narcotics for pain due to her kidney stone. She needs further input from urology. Timing of disposition will be determined by her clinical course, Other
[2018-06-24] MEDS: DIPHENHYDRAMINE HCL 25 MG/10 ML UDC PO PRN ×2 (13:56→20:48)
[2018-06-24 21:11] LABS: APPEARANCE,URINE CLOUDY; BILIRUBIN,URINE NEGATIVE (NEGATIVE); COLOR,URINE RED; GLUCOSE, URINE NEGATIVE (NEGATIVE); KETONES,URINE NEGATIVE (NEGATIVE); LEUKOCYTE ESTERASE,URINE LARGE (NEGATIVE); NITRITE,URINE NEGATIVE (NEGATIVE); PROTEIN,URINE >=500 mg/dL (NEGATIVE); URINE SPECIFIC GRAVITY 1.015; UROBILINOGEN,URINE NEGATIVE mg/dL (<2.0)
[2018-06-24] MEDS: CEFTRIAXONE SODIUM 1,000 MG in DEXTROSE 5%-WATER 50 ML IV SCH (22:17)
[2018-06-25] MEDS: HYDROMORPHONE HCL INJ/PF 2 MG/ML AMPULE IV PRN ×7 (00:57→21:09)
[2018-06-25] MEDS: ONDANSETRON HCL INJ/PF 4 MG/2 ML SDV IV PRN ×4 (00:57→21:08)
[2018-06-25] MEDS: DIPHENHYDRAMINE HCL 25 MG/10 ML UDC PO PRN ×3 (04:22→21:08)
[2018-06-25 07:17] LABS: ABSOLUTE BASOPHILS # (AUTO) 0.1 10^3/uL (0.0-0.2); ABSOLUTE LYMPHOCYTES (AUTO) 2.2 10^3/uL (0.5-4.7); ABSOLUTE MONOCYTES (AUTO) 0.6 10^3/uL (0.1-1.4); ABSOLUTE NEUT (AUTO) 4.8 10^3/uL (1.7-8.2); BASOPHILS % (AUTO) 1.4 % (0-2); EOSINOPHILS % (AUTO) 0.1 % (0-6); HEMATOCRIT 33.1 % (36.0-47.0); HEMOGLOBIN 11.8 g/dL (12.0-15.5); MEAN CORPUSCULAR HEMOGLOBIN 32.5 pg (27.0-33.4); MEAN CORPUSCULAR HGB CONC 35.5 g/dL (32.0-36.0); MEAN CORPUSCULAR VOLUME 92 fl (80-97); MONOCYTES % (AUTO) 7.3 % (3-13); PLATELET COUNT 278 10^3/uL (150-450); RED BLOOD COUNT 3.62 10^6/uL (3.72-5.28); RED CELL DISTRIBUTION WIDTH 13.2 % (11.5-14.0); SEGMENTED NEUTROPHILS % (AUTO) 62.2 % (42-78); TOTAL CELLS COUNTED % (AUTO) 100 %; WHITE BLOOD COUNT 7.7 10^3/uL (4.0-10.5)
[2018-06-25 07:36] LABS: ANION GAP 11 (5-19); BLOOD UREA NITROGEN 8 mg/dL (7-20); CARBON DIOXIDE 18 mmol/L (22-30); CHLORIDE 116 mmol/L (98-107); GLUCOSE 124 mg/dL (75-110); POTASSIUM 4.2 mmol/L (3.6-5.0); SODIUM 145.4 mmol/L (137-145)
[2018-06-25] MEDS: POTASSIUM CHLORIDE 10 MEQ CAPSULE.ER PO SCH (14:16)
[2018-06-25] MEDS: DOCUSATE SODIUM 100 MG CAPSULE PO SCH ×2 (14:16→18:15)
[2018-06-25] MEDS: POLYETHYLENE GLYCOL 3350 POWDER 17 GM/1 PACKET PO PRN (14:19)
[2018-06-25] MEDS ORDERED: IBUPROFEN 600 MG TABLET PO PRN (16:58)
--- NOTE | 2018-06-25 17:07 | PDOC PROGRESS REPORT ---
Subjective Progress Note for:: 06/25/18 Subjective:: Patient admitted with right flank pain associated with nausea and vomiting. She was thought to have nephrolithiasis with CT revealing an intrarenal calculi bilaterally. She was seen by urology and had a right ureteral double-J stent and started. She is IV ceftriaxone for presumably a complicated UTI although her urine culture has been negative. Patient noted a rash today which was initially on her back and tells me that she has had shingles before and this seemed like has shingles rash. I examined her he did appear to be some healing shingles rash however I was informed later on this afternoon and I examined high again that she had developed a rash on the right breast and this does appear to be as shingles. It does not appear to be affecting the dermatome on the right side as well as some old lesions from the left side. I have started on Zovirax as well as restarted her home gabapentin and added Motrin for pain control. Reason For Visit: UTI; HYPOKALEMIA Physical Exam Vital Signs: Temp Pulse Resp BP Pulse Ox 98.5 F 75 16 143/63 H 100 06/25/18 14:58 06/25/18 14:58 06/25/18 14:58 06/25/18 14:58 06/25/18 14:58 Intake & Output 06/24/18 06/25/18 06/26/18 06:59 06:59 06:59 Intake Total 1723 1478 822 Output Total 700 900 Balance 1723 778 -78 Weight 72 kg 74.1 kg General appearance: PRESENT: no acute distress, well-developed Head exam: PRESENT: atraumatic Neck exam: ABSENT: carotid bruit, JVD, lymphadenopathy, thyromegaly Respiratory exam: PRESENT: clear to auscultation mal. ABSENT: rales, rhonchi, wheezes Cardiovascular exam: PRESENT: RRR. ABSENT: diastolic murmur, rubs, systolic murmur GI/Abdominal exam: PRESENT: ascites Rectal exam: PRESENT: deferred Neurological exam: PRESENT: alert, awake, oriented to person, oriented to place , oriented to time, oriented to situation, CN II-XII grossly intact. ABSENT: motor sensory deficit Skin exam: PRESENT: erythema, rash, urticaria, vesicles, other - Maculopapular rashes appeared to be healing on the back however that there is some new erythematous drop on the right breast. No discharge is seen Results Laboratory Results: 06/25/18 06:23 06/25/18 06:23 06/24/18 06/25/18 06/25/18 20:18 06:23 06:23 WBC 7.7 RBC 3.62 L Hgb 11.8 L Hct 33.1 L MCV 92 MCH 32.5 MCHC 35.5 RDW 13.2 Plt Count 278 Seg Neutrophils % 62.2 Lymphocytes % 29.0 Monocytes % 7.3 Eosinophils % 0.1 Basophils % 1.4 Absolute Neutrophils 4.8 Absolute Lymphocytes 2.2 Absolute Monocytes 0.6 Absolute Eosinophils 0.0 Absolute Basophils 0.1 Sodium 145.4 H Potassium 4.2 Chloride 116 H Carbon Dioxide 18 L Anion Gap 11 BUN 8 Creatinine 0.78 Est GFR ( Amer) > 60 Est GFR (Non-Af Amer) > 60 Glucose 124 H Calcium 9.0 Magnesium 2.0 Urine Color RED Urine Appearance CLOUDY Urine pH 5.0 Ur Specific Eva 1.015 Urine Protein >=500 H Urine Glucose (UA) NEGATIVE Urine Ketones NEGATIVE Urine Blood LARGE H Urine Nitrite NEGATIVE Ur Leukocyte Esterase LARGE H Urine WBC (Auto) 81 Urine RBC (Auto) >182 Impressions: Abdomen/Pelvis CT 06/18/18 19:51 IMPRESSION: Intrarenal calculi bilaterally. Mild right hydronephrosis/ hydroureter that appears to be secondary to a couple of 2 mm calcifications in the mid to distal ureter. Chest X-Ray 06/19/18 15:27 IMPRESSION: NO ACUTE RADIOGRAPHIC FINDING IN THE CHEST. Retrograde Pyelogram 06/20/18 00:00 IMPRESSION: Retrograde pyelogram. Refer to operative note for further information. Assessment & Plan - Diagnosis (1) Herpes zoster infection Qualifiers: Herpes zoster complications: without complications Qualified Code(s): B02.9 - Zoster without complications Is this a current diagnosis for this admission?: Yes Plan: Start Zovirax, place patient on isolation (2) Complicated UTI (urinary tract infection) Is this a current diagnosis for this admission?: Yes Plan: Culture-negative although initial urinalysis did indicate an infection. Patient is currently on ceftriaxone. She was on ciprofloxacin as outpatient. Will suggest probably continuing he is cephalosporin at discharge (3) Hypertension Qualifiers: Hypertension type: essential hypertension Qualified Code(s): I10 - Essential (primary) hypertension Is this a current diagnosis for this admission?: Yes (4) Rt nephrolithiasis and hydronephrosis Is this a current diagnosis for this admission?: Yes Plan: Status post stent placement - Time Time Spent with patient: 25-34 minutes Medications reviewed and adjusted accordingly: Yes Anticipated discharge: Home Within: within 72 hours - Inpatient Certification Based on my medical assessment, after consideration of the patient's comorbidities, presenting symptoms, or acuity I expect that the services needed warrant INPATIENT care.: Yes Medical Necessity: Need for Pain Control, Risk of Complication if Not Cared For in Hospital
[2018-06-25] MEDS: GABAPENTIN 300 MG CAPSULE PO SCH (21:10)
[2018-06-25] MEDS: FLUTICASONE/SALMETEROL DISKUS 250-50 MCG/DOSE IH SCH (21:56)
[2018-06-25] MEDS: CEFTRIAXONE SODIUM 1,000 MG in DEXTROSE 5%-WATER 50 ML IV SCH (21:57)
[2018-06-25] MEDS: ACYCLOVIR 800 MG TABLET PO SCH (21:59)
[2018-06-26] MEDS: DIPHENHYDRAMINE HCL 25 MG/10 ML UDC PO PRN ×3 (08:23→22:01)
[2018-06-26] MEDS: HYDROMORPHONE HCL INJ/PF 2 MG/ML AMPULE IV PRN ×4 (08:24→22:01)
[2018-06-26] MEDS: ACYCLOVIR 800 MG TABLET PO SCH ×5 (08:24→22:02)
[2018-06-26] MEDS: ONDANSETRON HCL INJ/PF 4 MG/2 ML SDV IV PRN ×3 (08:24→22:01)
[2018-06-26] MEDS: FLUTICASONE/SALMETEROL DISKUS 250-50 MCG/DOSE IH SCH ×2 (09:50→22:00)
[2018-06-26] MEDS: DOCUSATE SODIUM 100 MG CAPSULE PO SCH ×2 (09:51→17:09)
[2018-06-26] MEDS: AMLODIPINE BESYLATE 10 MG TABLET PO SCH (09:51)
[2018-06-26] MEDS: POTASSIUM CHLORIDE 10 MEQ CAPSULE.ER PO SCH (09:51)
[2018-06-26] MEDS: GABAPENTIN 300 MG CAPSULE PO SCH ×2 (09:51→22:02)
[2018-06-26] MEDS: OXYCODONE-ACETAMINOPHEN 5-325 MG TABLET PO PRN ×2 (10:53→17:08)
[2018-06-26] MEDS: INSULIN LISPRO 100 UNIT/ML 3 ML VIAL SUBCUT PRN (12:52)
--- NOTE | 2018-06-26 17:11 | PDOC PROGRESS REPORT ---
Subjective Progress Note for:: 06/26/18 Subjective:: Patient admitted with right flank pain associated with nausea and vomiting. She was thought to have nephrolithiasis with CT revealing an intrarenal calculi bilaterally. She was seen by urology and had a right ureteral double-J stent and started. She is IV ceftriaxone for presumably a complicated UTI although her urine culture has been negative. Rash appears to be improved patient complaining of increasing pain. She apparently has been getting Dilaudid 2 mg IV every 2 hours pretty much around- the-clock as well as Percocet every 6 hours as needed. I have decreased the Dilaudid to every 4 hours as needed and have increased her gabapentin to every 8 hours Reason For Visit: UTI; HYPOKALEMIA Physical Exam Vital Signs: Temp Pulse Resp BP Pulse Ox 98.4 F 80 16 131/51 H 100 06/26/18 15:36 06/26/18 15:36 06/26/18 15:36 06/26/18 15:36 06/26/18 15:36 Intake & Output 06/25/18 06/26/18 06/27/18 06:59 06:59 06:59 Intake Total 1478 1602 50 Output Total 700 900 Balance 778 702 50 Weight 74.1 kg 77.9 kg General appearance: PRESENT: no acute distress, other - Slightly built Head exam: PRESENT: atraumatic Eye exam: PRESENT: PERRLA Respiratory exam: PRESENT: clear to auscultation mal. ABSENT: rales, rhonchi, wheezes Cardiovascular exam: PRESENT: RRR, +S1, +S2 GI/Abdominal exam: PRESENT: normal bowel sounds, soft. ABSENT: distended, guarding, mass, organolmegaly, rebound, tenderness Rectal exam: PRESENT: deferred Neurological exam: PRESENT: alert, awake, oriented to person, oriented to place , oriented to time, oriented to situation, CN II-XII grossly intact. ABSENT: motor sensory deficit Skin exam: PRESENT: rash - Erythematous rash especially on right breast. The rash on her back with some vesicles and papules appear to be drying. Results Laboratory Results: 06/25/18 06:23 06/25/18 06:23 06/24/18 20:18 Clean Catch Midstream Urine Culture - Final NO GROWTH 2 DAYS Impressions: Abdomen/Pelvis CT 06/18/18 19:51 IMPRESSION: Intrarenal calculi bilaterally. Mild right hydronephrosis/ hydroureter that appears to be secondary to a couple of 2 mm calcifications in the mid to distal ureter. Chest X-Ray 06/19/18 15:27 IMPRESSION: NO ACUTE RADIOGRAPHIC FINDING IN THE CHEST. Retrograde Pyelogram 06/20/18 00:00 IMPRESSION: Retrograde pyelogram. Refer to operative note for further information. Assessment & Plan - Diagnosis (1) Herpes zoster infection Qualifiers: Herpes zoster complications: without complications Qualified Code(s): B02.9 - Zoster without complications Is this a current diagnosis for this admission?: Yes Plan: Continue Zovirax and increase gabapentin for pain control (2) Complicated UTI (urinary tract infection) Is this a current diagnosis for this admission?: Yes Plan: Continue ceftriaxone (3) Hypertension Qualifiers: Hypertension type: essential hypertension Qualified Code(s): I10 - Essential (primary) hypertension Is this a current diagnosis for this admission?: Yes (4) Rt nephrolithiasis and hydronephrosis Is this a current diagnosis for this admission?: Yes Plan: Follow-up with urology once discharged - Time Time Spent with patient: 15-24 minutes Medications reviewed and adjusted accordingly: Yes Anticipated discharge: Home Within: within 72 hours - Inpatient Certification Based on my medical assessment, after consideration of the patient's comorbidities, presenting symptoms, or acuity I expect that the services needed warrant INPATIENT care.: Yes Medical Necessity: Need Close Monitoring Due to Risk of Patient Decompensation, Need for Pain Control, Risk of Complication if Not Cared For in Hospital
[2018-06-27] MEDS: INSULIN LISPRO 100 UNIT/ML 3 ML VIAL SUBCUT PRN ×2 (00:02→07:59)
[2018-06-27] MEDS: HYDROMORPHONE HCL INJ/PF 2 MG/ML AMPULE IV PRN ×3 (02:04→10:37)
[2018-06-27] MEDS: ONDANSETRON HCL INJ/PF 4 MG/2 ML SDV IV PRN ×3 (02:05→10:37)
[2018-06-27] MEDS: DIPHENHYDRAMINE HCL 25 MG/10 ML UDC PO PRN (06:30)
[2018-06-27] MEDS: GABAPENTIN 300 MG CAPSULE PO SCH ×2 (06:30→14:23)
[2018-06-27] MEDS: OXYCODONE-ACETAMINOPHEN 5-325 MG TABLET PO PRN ×2 (07:59→14:32)
[2018-06-27] MEDS: ACYCLOVIR 800 MG TABLET PO SCH ×4 (07:59→16:49)
[2018-06-27] MEDS: AMLODIPINE BESYLATE 10 MG TABLET PO SCH (10:37)
[2018-06-27] MEDS: POTASSIUM CHLORIDE 10 MEQ CAPSULE.ER PO SCH (10:37)
[2018-06-27] MEDS: DOCUSATE SODIUM 100 MG CAPSULE PO SCH ×2 (10:38→17:13)
[2018-06-27] MEDS: FLUTICASONE/SALMETEROL DISKUS 250-50 MCG/DOSE IH SCH (10:38)
--- NOTE | 2018-06-27 12:27 | PDOC CONSULTATION ---
Consultation Consult Date: 06/27/18 Consult reason:: Flank pain and hematuria History of Present Illness Admission Date/PCP: 06/18/18 22:23 History of Present Illness: GANESH GANT is a 62 year old female This patient is a 62-year-old female who was admitted for urinary tract infection and right flank pain. She underwent stent placement on the right due to a 2 mm obstructing stone and an infection. Since that time she is continued to have some hematuria and some flank pain. Today she is sitting in bed writing notes not seeming to be in pain. She is sitting crosslegged on the bed. We discussed her findings and the reasons for the stent and the fact that she would have some hematuria and some continued discomfort due to the stent until such time as her infection could be treated and Dr. Urbina could decide whether he is going to remove the stent or do ureteroscopy on her. It is possible that her stent could have slipped out of position so she will need a KUB. If that shows that the stent is in good position, she is okay to be discharged with follow-up at his office when scheduled previously. Past Medical History Cardiac Medical History: Reports: Coronary Artery Disease - High cholesterol, tricor, Hypertension Denies: Myocardial Infarction Pulmonary Medical History: Reports: Asthma, Bronchitis, Chronic Obstructive Pulmonary Disease (COPD), Pneumonia Neurological Medical History: Reports: Seizures Endocrine Medical History: Reports: Diabetes Mellitus Type 2 GI Medical History: Reports: Gastroesophageal Reflux Disease Musculoskeltal Medical History: Reports: Arthritis Psychiatric Medical History: Reports: Depression Hematology: Denies: Anemia Past Surgical History Past Surgical History: Reports: Appendectomy, Hysterectomy, Orthopedic Surgery, Tonsillectomy Denies: Pacemaker Social History Lives with: Spouse/Significant other Smoking Status: Current Every Day Smoker Frequency of Alcohol Use: None Hx Recreational Drug Use: Yes Drugs: Marijuana Hx Prescription Drug Abuse: No - Advance Directive Resuscitation Status: Full Code Family History Family History: Reviewed & Not Pertinent Parental Family History Reviewed: No Children Family History Reviewed: No Sibling(s) Family History Reviewed.: No Medication/Allergy Home Medications: Amlodipine Besylate [Norvasc 10 mg Tablet] 10 mg PO DAILY 06/19/18 Ciprofloxacin HCl [Cipro 500 mg Tablet] 500 mg PO Q12 06/19/18 Gabapentin [Neurontin 300 mg Capsule] 300 mg PO Q12 06/19/18 Lisinopril [Prinivil] 20 mg PO DAILY 06/19/18 Promethazine HCl [Phenergan 25 mg Tablet] 25 mg PO Q6HP PRN 06/19/18 Albuterol Sulfate [Albuterol Sulfate 2.5mg/3 mL] 1 vial NEB BIDP PRN 06/25/18 Albuterol Sulfate [Proair HFA Inhalation Aerosol 8.5 gm MDI] 2 puff IH Q4HP PRN 06/25/18 Fluticasone/Salmeterol [Advair 250-50 Diskus 14 Dose/Diskus] 1 puff IH Q12 06/25 Tiotropium [place] [Spiriva Handihaler 18 mcg/dose (30 Dose)] 1 cap IH DAILY 06/05 Allergies/Adverse Reactions: Shellfish * [Shellfish] Allergy (Severe, Verified 06/20/18 12:56) Anaphylaxis hydrochlorothiazide [Hydrochlorothiazide] Allergy (Verified 06/05/18 01:21) Anaphylaxis morphine [Morphine] Allergy (Verified 06/05/18 01:21) Penicillins Allergy (Verified 06/05/18 01:21) Anaphylaxis Sulfa (Sulfonamide Antibiotics) Allergy (Verified 06/05/18 01:21) Anaphylaxis Physical Exam Vital Signs: Temp Pulse Resp BP Pulse Ox 98.6 F 73 16 134/51 H 100 06/27/18 11:22 06/27/18 11:22 06/27/18 11:22 06/27/18 11:22 06/27/18 11:22 Intake & Output 06/26/18 06/27/18 06/28/18 06:59 06:59 06:59 Intake Total 1602 644 Output Total 900 700 Balance 702 -56 Weight 77.9 kg 76.8 kg Results Laboratory Results: 06/25/18 06:23 06/25/18 06:23 06/24/18 20:18 Clean Catch Midstream Urine Culture - Final NO GROWTH 2 DAYS Impressions: Abdomen/Pelvis CT 06/18/18 19:51 IMPRESSION: Intrarenal calculi bilaterally. Mild right hydronephrosis/ hydroureter that appears to be secondary to a couple of 2 mm calcifications in the mid to distal ureter. Chest X-Ray 06/19/18 15:27 IMPRESSION: NO ACUTE RADIOGRAPHIC FINDING IN THE CHEST. Retrograde Pyelogram 06/20/18 00:00 IMPRESSION: Retrograde pyelogram. Refer to operative note for further information. Assessment & Plan - Diagnosis (1) Ureterolithiasis Is this a current diagnosis for this admission?: Yes Plan: 1. KUB to check for stent position. 2. Stent is in good position she may be discharged home to follow-up in the urology office and should keep her already scheduled appointment.
--- NOTE | 2018-06-27 13:49 | RADIOLOGY REPORT (SQ) ---
EXAM DESCRIPTION: KUB/ABDOMEN (SINGLE VIEW) COMPLETED DATE/TIME: 06/27/2018 1:32 pm REASON FOR STUDY: visulizing kidney stent placement COMPARISON: CT abdomen pelvis 06/18/2018, 06/05/2018 NUMBER OF VIEWS: One view. TECHNIQUE: Supine radiographic image of the abdomen acquired. LIMITATIONS: None. FINDINGS: BOWEL GAS PATTERN: Normal bowel gas pattern. No dilated loops. CALCIFICATIONS: There are tiny punctate radiopaque stone about 2 mm in size along the distal aspect o f the right double-J ureteral stent within 5 cm of the UVJ. Multiple tiny intrarenal nonobstructive calculi are present similar compared to CT 06/18/2018. SOFT TISSUES: No gross mass or suggestion of organomegaly. HARDWARE: Right-sided double-J ureteral stent in good positioning. BONES: Advanced facet arthropathy at L5-S1 OTHER: No other significant finding. IMPRESSION: Right-sided double-J stent in good positioning. Tiny calculi in the distal right ureter along the course of the stent, within the distal 5 cm of the right ureter TECHNICAL DOCUMENTATION: JOB ID: [id number] [employer]- All Rights Reserved Reading location - IP/workstation name: [email or web address]
[2018-06-27 14:55] LABS: APPEARANCE,URINE CLOUDY; BILIRUBIN,URINE NEGATIVE (NEGATIVE); GLUCOSE, URINE NEGATIVE (NEGATIVE); KETONES,URINE NEGATIVE (NEGATIVE); LEUKOCYTE ESTERASE,URINE LARGE (NEGATIVE); NITRITE,URINE NEGATIVE (NEGATIVE); PROTEIN,URINE >=500 mg/dL (NEGATIVE); URINE SPECIFIC GRAVITY 1.017; UROBILINOGEN,URINE NEGATIVE mg/dL (<2.0)
[2018-06-27 14:56] LABS: COLOR,URINE PINK
[2018-06-27] MEDS ORDERED: OXYCODONE-ACETAMINOPHEN 5-325 MG TABLET PO ONE (15:45)
[2018-06-27] MEDS ORDERED: FLUCONAZOLE 100 MG TABLET PO ONE (17:47)
--- NOTE | 2018-06-27 17:52 | PDOC DISCHARGE SUMMARY ---
General - Admit/Disc Date/PCP Admission Date/Primary Care Provider: 06/18/18 22:23 Discharge Date: 06/27/18 - Discharge Diagnosis (1) Herpes zoster infection Is this a current diagnosis for this admission?: Yes (2) Complicated UTI (urinary tract infection) Is this a current diagnosis for this admission?: Yes (3) Hypertension Is this a current diagnosis for this admission?: Yes (4) Rt nephrolithiasis and hydronephrosis Is this a current diagnosis for this admission?: Yes (5) Hypocalcemia Is this a current diagnosis for this admission?: Yes (6) Hypokalemia Is this a current diagnosis for this admission?: Yes (7) Type 2 diabetes mellitus Is this a current diagnosis for this admission?: Yes (8) UTI (urinary tract infection) Is this a current diagnosis for this admission?: Yes Summary: Although urine culture was negative and was treated empirically with IV ceftriaxone and continue ciprofloxacin as outpatient (9) Ureterolithiasis Is this a current diagnosis for this admission?: Yes - Additional Information Resuscitation Status: Full Code Discharge Diet: Cardiac Discharge Activity: Activity As Tolerated Prescriptions: Acyclovir [Zovirax 800 mg Tablet] 800 mg PO 5XD #30 tablet Ciprofloxacin HCl [Cipro 500 mg Tablet] 500 mg PO BID #20 tablet Gabapentin [Neurontin 300 mg Capsule] 300 mg PO Q8 #60 capsule Home Medications: Amlodipine Besylate [Norvasc 10 mg Tablet] 10 mg PO DAILY 06/19/18 Lisinopril [Prinivil] 20 mg PO DAILY 06/19/18 Promethazine HCl [Phenergan 25 mg Tablet] 25 mg PO Q6HP PRN 06/19/18 Albuterol Sulfate [Albuterol Sulfate 2.5mg/3 mL] 1 vial NEB BIDP PRN 06/25/18 Albuterol Sulfate [Proair HFA Inhalation Aerosol 8.5 gm MDI] 2 puff IH Q4HP PRN 06/25/18 Fluticasone/Salmeterol [Advair 250-50 Diskus 14 Dose/Diskus] 1 puff IH Q12 06/25 Tiotropium [place] [Spiriva Handihaler 18 mcg/dose (30 Dose)] 1 cap IH DAILY 06/05 Acyclovir [Zovirax 800 mg Tablet] 800 mg PO 5XD #30 tablet 06/27/18 Ciprofloxacin HCl [Cipro 500 mg Tablet] 500 mg PO BID #20 tablet 06/27/18 Gabapentin [Neurontin 300 mg Capsule] 300 mg PO Q8 #60 capsule 06/27/18 Ibuprofen [Motrin 600 mg Tablet] 600 mg PO Q6HP PRN tablet 06/27/18 History of Present Illness History of Present Illness: GANESH GANT is a 62 year old female with history of COPD who is active smoker, hypertension and diabetes who does not take medications presents to the emergency room with multiple complain such as right flank pain along with nausea vomiting and weak and dizzy. Patient was seen in the emergency room twice in the last 10 days for similar complaint. Patient was diagnosed with UTI and nonobstructive kidney stone. Patient was prescribed Cipro. However she did not take medication because it made her nauseous and vomiting. Patient denies fever or chills. Patient denies chest pain or shortness of breath. Patient denies headache or focal weakness or numbness or vaginal discharge. Patient reports dysuria without hematuria. On arrival to emergency room patient was afebrile with initial blood pressure was 96/58. Her laboratory workup shows normal white count. Chemistry shows hypokalemia and hypocalcemia along with slightly elevated creatinine. UA shows UTI. CT abdomen was done which shows mild hydronephrosis and 2 mm distal ureteral stone. Patient was given ceftriaxone and was referred to hospitalist service for admission. Hospital Course Hospital Course: Patient was found to have mild hydronephrosis with a 2 mm distal ureteral stone. She was started on IV antibiotics. Urology consultation was obtained. She ultimately required a double-J stent on the right side. She has received 10 days of IV antibiotics and was reevaluated by urology prior to discharge today as patient was still complaining of hematuria. KUB done reveals no acute findings. Patient also had pain control issues are required Dilaudid frequently while in hospital as well as Percocet although this had been discontinued at discharge. She did develop some rash on her right breast as well as her back which appeared to be herpes lesions and so she was started on Zovirax. Patient has otherwise remained hemodynamically stable and she has follow-up with her primary care physician as well as with the urologist. Physical Exam Vital Signs: Temp Pulse Resp BP Pulse Ox 98.6 F 73 16 134/51 H 100 06/27/18 11:22 06/27/18 11:22 06/27/18 11:22 06/27/18 11:22 06/27/18 11:22 Intake & Output 06/26/18 06/27/18 06/28/18 06:59 06:59 06:59 Intake Total 1602 644 Output Total 900 700 Balance 702 -56 Weight 77.9 kg 76.8 kg General appearance: PRESENT: no acute distress, other - Slightly built Head exam: PRESENT: atraumatic, normocephalic Eye exam: PRESENT: conjunctiva pink, EOMI, PERRLA. ABSENT: scleral icterus Ear exam: PRESENT: normal external ear exam Mouth exam: PRESENT: moist, tongue midline Neck exam: ABSENT: carotid bruit, JVD, lymphadenopathy, thyromegaly Respiratory exam: PRESENT: clear to auscultation mal. ABSENT: rales, rhonchi, wheezes Cardiovascular exam: PRESENT: RRR. ABSENT: diastolic murmur, rubs, systolic murmur Pulses: PRESENT: normal dorsalis pedis pul Vascular exam: PRESENT: normal capillary refill GI/Abdominal exam: PRESENT: normal bowel sounds, soft. ABSENT: distended, guarding, mass, organolmegaly, rebound, tenderness Rectal exam: PRESENT: deferred Extremities exam: PRESENT: full ROM. ABSENT: calf tenderness, clubbing, pedal edema Neurological exam: PRESENT: alert, awake, oriented to person, oriented to place , oriented to time, oriented to situation, CN II-XII grossly intact. ABSENT: motor sensory deficit Psychiatric exam: PRESENT: appropriate affect, normal mood. ABSENT: homicidal ideation, suicidal ideation Skin exam: PRESENT: dry, intact, rash - Erythematous rash on the right breast and rash on the back with some vesicles in the healing stages, warm. ABSENT: cyanosis Results Laboratory Results: 06/25/18 06:23 06/25/18 06:23 06/27/18 14:32 Urine Color PINK Urine Appearance CLOUDY Urine pH 5.0 Ur Specific [place] 1.017 Urine Protein >=500 H Urine Glucose (UA) NEGATIVE Urine Ketones NEGATIVE Urine Blood LARGE H Urine Nitrite NEGATIVE Ur Leukocyte Esterase LARGE H Urine WBC (Auto) 51 Urine RBC (Auto) >182 Impressions: Abdomen/Pelvis CT 06/18/18 19:51 IMPRESSION: Intrarenal calculi bilaterally. Mild right hydronephrosis/ hydroureter that appears to be secondary to a couple of 2 mm calcifications in the mid to distal ureter. Chest X-Ray 06/19/18 15:27 IMPRESSION: NO ACUTE RADIOGRAPHIC FINDING IN THE CHEST. Retrograde Pyelogram 06/20/18 00:00 IMPRESSION: Retrograde pyelogram. Refer to operative note for further information. KUB X-Ray 06/27/18 00:00 IMPRESSION: Right-sided double-J stent in good positioning. Tiny calculi in the distal right ureter along the course of the stent, within the distal 5 cm of the right ureter Qualifiers - * PATIENT BEING DISCHARGED WITH ANY OF THE FOLLOWING DIAGNOSIS: No Plan Time Spent: Greater than 30 Minutes
[2018-06-27 17:53] VITALS: BP 146/72
== END 2018-06-27 18:26 | disposition home or self-care (01) | DRG 690 ==
LOC: ER 19:13 → EH 22:23 → 4N 06-19 00:59
PROVIDERS: ADMIT Internal Medicine; ATTEND Internal Medicine
PROC: 0T768DZ Dilation of Right Ureter with Intraluminal Device, Via Natural or Artificial Opening Endoscopic (ICD-10-PCS; principal; 2018-06-20 17:45)
DX: N13.6 Pyonephrosis (principal); E87.0 Hyperosmolality and hypernatremia; E87.6 Hypokalemia; E83.51 Hypocalcemia; K21.9 Gastro-esophageal reflux disease without esophagitis; I25.10 Atherosclerotic heart disease of native coronary artery without angina pectoris; I10 Essential (primary) hypertension; J44.9 Chronic obstructive pulmonary disease, unspecified; E78.5 Hyperlipidemia, unspecified; G40.909 Epilepsy, unspecified, not intractable, without status epilepticus; B02.9 Zoster without complications; F17.210 Nicotine dependence, cigarettes, uncomplicated; E11.9 Type 2 diabetes mellitus without complications; F32.9 Major depressive disorder, single episode, unspecified; M19.90 Unspecified osteoarthritis, unspecified site; Z90.49 Acquired absence of other specified parts of digestive tract; Z88.0 Allergy status to penicillin; Z91.013 Allergy to seafood; Z88.2 Allergy status to sulfonamides; Z88.6 Allergy status to analgesic agent; Z88.8 Allergy status to other drugs, medicaments and biological substances
CPT/HCPCS: 36415; 36600; 71045; 74018; 74176; 74420; 80048; 80053; 81001; 82040; 82550; 82803; 82962; 83605; 83735; 84100; 84484; 85025; 85027; 87040; 87086; 910; 93005; 93010; 96374; 96375; 99285; C1758; C1769; C2617; J0610; J0696; J1170; J1650; J1815; J1885; J2250; J2405; J2704; J3010; J3480; J3490; J7060; S0028; S0119